=== PATIENT | male | born 1965 | race Caucasian/White ===

== ENCOUNTER → 2022-09-18 15:16 | Outpatient (CLI) | payer OTHER, SELFPAY ==
--- NOTE | ~2022-09-18 | XR_ITS ---
AP and lateral views of the left hip Clinical history: Pain Findings: No acute fracture or dislocation is seen. Osseous alignment is anatomic. There is mild to m oderate degenerative change at the left hip joint. Soft tissues are unremarkable. Impression: Mild to moderate degenerative change of the left hip joint. Reviewed, dictated and finalized at location . Impression: Mild to moderate degenerative change of the left hip joint.
== END ==
PROVIDERS: PCP Anesthesiology Pain Medicine; Visit Provider Anesthesiology Pain Medicine
DX: M16.12 Unilateral primary osteoarthritis, left hip (principal)
CPT/HCPCS: 73502

== ENCOUNTER 2023-08-09 09:18 | Emergency (ER) | payer OTHER, SELFPAY ==
--- NOTE | ~2023-08-09 | CT_ITS ---
EXAMINATION: CT soft tissue neck w con DATE: 08/09/2023 12:25 INDICATION: Left ear and left face pain. TECHNIQUE: Computed tomography (CT) of the neck was performed with 75 mL Omnipaque-350 intravenous co ntrast. Automated exposure control and iterative reconstruction technique were employed. The dose-calderon gth product was 748.70 mGy-cm. COMPARISON: None FINDINGS: There is no significant plaque in the proximal internal carotid arteries. There are no path ologically enlarged lymph nodes. The parotid glands and submandibular glands are normal. There is mil d mucosal thickening in the paranasal sinuses. There is wall thickening of left external auditory can al, consistent with otitis externa. There is moderate cervical spondylosis. IMPRESSION: 1. Left-sided otitis externa. Reviewed, dictated and finalized at location E.
--- NOTE | 2023-08-09 10:03 | ED.EAR ---
HPI - Ear Problem General Chief complaint: Ear Stated complaint: ear pain, drainage Time Seen by Provider: 08/09/23 10:02 History of Present Illness HPI Narrative: Patient is a 58-year-old male with history of chronic back pain here with right ear pain and facial swelling. Patient notes that the swelling is located beneath and anterior to his left ear and seems to be worsening over the last 3 days however he has had pressure and pain behind this ear for about 2 weeks. He does note a recurrent history of some pressure and pain with swelling to this ear which typically resolves after his ear drum pops and he has some drainage from his ear. This time his symptoms persisted and are worsening. He notes he had some mild drainage from this ear approximately 3 days ago and has not had improvement of symptoms. He denies any fever chills. Denies any difficulty with jaw movement. The pain does seem to radiate down into his neck. He denies ever seeing any specialist for this in the past. He does not follow closely with his PCP. Related Data Home Medications Medication Instructions Recorded Confirmed calcium fructoborate 216 mg tablet mg PO 05/15/20 05/04/23 (Move Free Ultra Faster Comfort) multivitamin 1 tablet PO DAILY 05/15/20 05/04/23 omega-3 fatty acids 1,000 mg 1,000 mg PO DAILY 05/15/20 05/04/23 capsule vitamin B complex 1 cap PO DAILY 05/15/20 05/04/23 ascorbic acid (vitamin C) 1,000 mg 1 g PO DAILY 07/17/21 05/04/23 tablet testosterone cypionate 200 mg/mL 100 mg IM Q7D 02/05/22 05/04/23 intramuscular oil (Depo-Testosterone) Allergies Allergy/AdvReac Type Severity Reaction Status Date / Time Penicillins Allergy Unknown RASH Verified 08/09/23 09:20 Sulfa (Sulfonamide Allergy Unknown LOSS OF Verified 08/09/23 09:20 Antibiotics) CONCIOUSNESS Review of Systems Review of Systems: All systems reviewed & are unremarkable except as noted in HPI and below PMFSH Past Medical History Medical History Carpal tunnel syndrome Hypertension Hypogonadism in male Surgical History Surgical History History of carpal tunnel surgery (~2015) both hands History of knee surgery (~1987) right knee History of placement of ear tubes as child Hx of colonoscopy age 52 Family History Family History Other Diabetes mellitus Heart disease Hypertension Uterine cancer Social History Social History Smoking status: Former smoker Smoking end date: 03/15/07 Alcohol intake: current Alcohol use details: consumes beer occasionally Substance use: never Substance use type: does not use Lack of Transportation: No Lack of Food: Never True Current Housing: I Have Housing Concerned About Future Housing: No Difficulty Paying Gas/Electric Bills: No Difficulty Paying for Meds: No Currently Unemployed: No Education: High School Diploma/GED Difficulty w/ Childcare or Family Care: No Gender identity (if verbalized by the patient): Male Exam Narrative: GENERAL: Well-appearing, well-nourished, and in no acute distress. HEAD: Normocephalic, atraumatic. EYES: PERRLA and EOMI. ENT: Nares clear. Mucous membranes moist. Patient has swelling over the angle of the mandible on the left side which extends to his cheek on the left side. Tender to touch without any overlying skin changes. He has tenderness with manipulation of the left pinna. Unable to see the TM due to swelling of the ear canal with significant tenderness on exam. No active drainage. Right pinna, canal, TM appear normal. NECK: Supple. CHEST: Clear to auscultation. No respiratory distress. HEART: Regular rate and rhythm. Normal peripheral pulses. ABDOMEN: Soft, nontender, nondist
[2023-08-09 10:37] VITALS: BP 156/84; PULSE 76; RESP 16; TEMP 36.4; O2SAT 98
[2023-08-09] MEDS: ONDANSETRON INJ 4 MG/2 ML VIAL IV PUSH (11:59)
[2023-08-09] MEDS: CIPROFLOXACIN 400 MG/D5W 200ML 200 ML 200 MG IVPB (12:00)
[2023-08-09] MEDS: MORPHINE SULFATE (*CRX) 4 MG/ML INJ IV PUSH (12:00)
[2023-08-09 12:13] LABS: Basophils Absolute Auto 0.1 K/mm3 (0.0-0.1); Basophils Percent Auto 0.6 % (0.2-1.2); Eosinophils Absolute Auto 0.3 K/mm3 (0-0.3); Hematocrit 43.9 % (42.0-52.0); Hemoglobin 14.8 g/dL (14.0-18.0); Immature Granulocyte Absolute 0.03 K/mm3 (0.00-0.031); Immature Granulocyte Percent A 0.3 % (0-0.5); Lymphocytes Absolute Auto 2.22 K/mm3 (0.9-3.2); Lymphocytes Percent Auto 19.9 % (18.3-44.2); Mean Corpuscular HGB Conc 33.7 g/dl (32-36); Mean Platelet Volume 10.3 fl (7.4-10.4); Monocytes Percent Auto 8.6 % (2.6-8.5); Neutrophils Absolute Auto 7.5 K/mm3 (1.3-6.7); Neutrophils Percent Auto 67.6 % (45.5-73.1); Platelet Count Result 260 k/mm3 (150-375); Red Blood Count 4.77 M/mm3 (4.6-6.20); Red Cell Distribution Width 12.5 % (11.5-14.5); White Blood Count 11.2 K/mm3 (4.5-10.0)
[2023-08-09 12:19] LABS: Estimated CRCL calculation 128 ml/min; Estimated Glomerular Filt Rate > 60
[2023-08-09 12:24] LABS: Alanine Aminotransferase 36 U/L (6-50); Albumin Level 4.4 g/dL (3.5-5.1); Alkaline Phosphatase 72 U/L (38-126); Anion Gap 7 mmol/L (4-12); Aspartate Amino Transferase 28 U/L (17-59); Bilirubin,Total 0.7 mg/dL (0.2-1.3); Blood Urea Nitrogen 13 mg/dL (9-20); Calcium 9.1 mg/dL (8.4-10.2); Carbon Dioxide 29 mmol/L (22-30); Chloride 102 mmol/L (98-107); Estimated CRCL calculation 145 ml/min; Estimated Glomerular Filt Rate > 60; Glucose 111 mg/dL (65-110); Potassium 3.8 mmol/L (3.4-5.0); Sodium 138 mmol/L (137-145)
[2023-08-09 12:25] LABS: CRP 2.1 mg/dL (<1.0)
== END 2023-08-09 14:00 | disposition home or self-care (01) ==
PROVIDERS: Emergency Provider Student in an Organized Health Care Education/Training Program; PCP Family Medicine
DX: H60.312 Diffuse otitis externa, left ear (principal)
CPT/HCPCS: 36415; 70491; 80053; 85025; 86140; 96365; 96375; 99284; J0744; J2270; J2405; Q9967

== ENCOUNTER 2023-11-10 09:26 | Outpatient (CLI) | payer OTHER, SELFPAY ==
--- NOTE | ~2023-11-10 | XR_ITS ---
AP and lateral views of the left hip Clinical history: Pain Findings: No acute fracture or dislocation is seen. Osseous alignment is anatomic. There is advanced degenerative change at the superior aspect of left hip joint space, joint space narrowing and reactiv e sclerosis.. Soft tissues are unremarkable. Impression: Advanced degenerative change of the left hip joint, as detailed above. Reviewed, dictated and finalized at location M. Impression: Advanced degenerative change of the left hip joint, as detailed above.
== END 2023-11-10 09:27 ==
LOC: MICIMG 09:28
PROVIDERS: PCP Orthopaedic Surgery; Visit Provider Neurological Surgery
DX: M16.12 Unilateral primary osteoarthritis, left hip (principal); M25.552 Pain in left hip
CPT/HCPCS: 73502

== ENCOUNTER 2024-03-10 13:55 | Outpatient (CLI) | payer OTHER, SELFPAY ==
--- NOTE | ~2024-03-10 | XR_ITS ---
EXAMINATION: XR lg joint inject/asp w image DATE: 03/10/2024 14:34 INDICATION: Left hip arthritis. TECHNIQUE: A time-out was performed to verify the patient's name, date of , and procedure to b e performed. The procedure including the risks, benefits, and alternatives was discussed with the pat ient. Risks discussed included bleeding and infection. The patient understood the risks and agreed to proceed. The skin overlying the left hip joint was prepped and draped in usual sterile fashion. An esthetic was administered with 1% lidocaine subcutaneously. A 22 G needle was advanced under fluoros copic guidance into the joint. Subsequently, injectate consisting of 2 mL 0.5% bupivacaine and 1 mL 80 mg/mL Depo-Medrol was instilled. The needle was removed and the entry site was cleaned and dresse d. There were no immediate complications. Fluoroscopy exposure time was 0.1 minutes. The total numbe r of images was 1. FINDINGS: Real-time fluoroscopy demonstrates the needle in the left hip joint. Patient's pain prior t o procedure:11/23. Patient's pain following the procedure: 09/22. IMPRESSION: 1. Fluoroscopy guided left hip joint injection of local anesthetic and steroid with decrease in the p atient's presenting pain. Reviewed, dictated and finalized at location A. E SPECIALIST IMPRESSION: 1. Fluoroscopy guided left hip joint injection of local anesthetic and steroid with decrease in the patient's presenting pain.
== END 2024-03-10 13:56 | disposition home or self-care (01) ==
PROVIDERS: PCP Family Medicine; Visit Provider Orthopaedic Surgery
DX: M16.12 Unilateral primary osteoarthritis, left hip (principal)
CPT/HCPCS: 20610; 77002; J1010; J2003

== ENCOUNTER 2024-04-25 14:37 | Outpatient (CLI) | payer OTHER, SELFPAY ==
--- NOTE | ~2024-04-25 | XR_ITS ---
Right Knee Technique: AP, lateral, and sunrise views were obtained. Clinical History: Pain Findings: No fracture or dislocation is seen. Osseous alignment is anatomic. There is advanced tricom partmental osteoarthritic change, with extensive osteophyte formation throughout the knee.. Soft tiss ues are unremarkable. No joint effusion is seen. Impression: Severe tricompartmental osteoarthritis. Reviewed, dictated and finalized at location . SHOP WORKER Impression: Severe tricompartmental osteoarthritis.
== END 2024-04-25 14:38 | disposition home or self-care (01) ==
LOC: MICIMG 14:38
PROVIDERS: PCP Family Medicine; Visit Provider Nurse Practitioner Family
DX: M17.11 Unilateral primary osteoarthritis, right knee (principal)
CPT/HCPCS: 73564

== ENCOUNTER 2024-07-22 11:07 | Outpatient (CLI) | payer OTHER, SELFPAY ==
--- OUTSIDE RECORDS SUMMARY | 2024-07-22 11:14 | XMS_ITS | Clinical Summary ---
Author Organization [facility] al Address [address] [place] [address] Care Team Providers Care Hand Tile Maker Name Role Phone Yazmin Drake MD Primary Care Provider [phone] Allergies Active Allergy Reactions Criticality Noted Date Comments Penicillin G Sulfa (Sulfonamide Antibiotics) Medications losartan (COZAAR) 50 mg tablet take 1 tablet by oral route every day 0 0 6 Active testosterone (ANDRODERM) 4 mg/24 hr apply 1 patch by transdermal route every day to clean, dry skin of the back, abdomen, and upper arms, or thighs in the evening 0 patch 0 6 Active Active Problems Problem Noted Date Diagnosed Date Pain in wrist 08/31/2015 Overview (06/20/2016): Wrist pain Pain of hand 06/06/2015 Overview (06/20/2016): Hand pain Former smoker 06/06/2015 Overview (06/20/2016): Ex smoker Medical History Medical History Date Comments Hx Other Medical High iron in bl ood.; Comments: ERMELINDA 06/06/2015 - Hx Other Medical Right carpal tu nnel release. 08-22-15; Comments: ERMELINDA 09/03/2015 - Hx Other Medical Left carpal gail barrie release 09-12-15.; Comments: ERMELINDA 09/24/2015 - Family History Medical History Relation Name Comments Other Other Family history of anesthetic problems, early heart attack before age 60, diabetes, hypertension, cancer and arthritis.; Relation Name Status Comments Other Social History Tobacco Use Types Packs/Day Years Used Date Smoking Tobacco: Never Assessed Sex and Gender Information Value Date Recorded Sex Assigned at Not on file Legal Sex Male 12:13 AM TRANSPORTATION CONSULTANT Gender Identity Not on file Sexual Orientation Not on file Obstetrics History Last Filed Vital Signs Vital Sign Reading Time Taken Comments Blood Pressure 160/88 05/15/2023 11:59 AM TRANSPORTATION CONSULTANT Pulse 78 05/15/2023 11:59 AM TRANSPORTATION CONSULTANT Temperature - - Respiratory Rate - - Oxygen Saturation - - Inhaled Oxygen Concentration - - Weight 149.7 kg (330 lb) 07/11/2023 9:15 AM CDT Height 172.7 cm (5' 8 ) 07/11/2023 9:15 AM CDT Body Mass Index 50.18 07/11/2023 9:15 AM CDT Plan of Treatment Health Maintenance Due Date Last Done Comments Colon Cancer Screening-Colonoscopy 1967 Depression Screening 1967 Hepatitis C Screening 1967 Prostate Cancer Screening-PSA 1967 DTaP/Tdap/Td Vaccine (1 - Tdap) 1978 Hepatitis B Screening 1985 Regular Well Visit/Exam 18-64 1985 Zoster Vaccine (1 of 2) 2017 Covid-19 Vaccine (3 2023-2 5 season) 2023 05/28/2020, 05/06/2020 Influenza Vaccine (#1) 2023 5, 08/01/2014 Pneumococcal vaccine <65 Aged Out No longer eligible based on patient's age to complete this topic Insurance [facility] CHO[facility] HMO/PPO Address: [address] [address] [place] [address] [facility] H[facility]/PPO Address: [address] [address] [place] [address] [facility] H[facility]/PPO Address: [address] [place] [address] Care Teams Hand Tile Maker Relationship Specialty Start Date End Date Yazmin Drake MD PCP - General Family Medicine 05/15/23
--- OUTSIDE RECORDS SUMMARY | 2024-07-22 11:14 | XMS_ITS | Encounter Summary ---
Author Organization [facility] Healthcare Address [address] [place] [address] Care Team Providers Care Bar Finish Operator Name Role Phone Will Verdugo MD Primary Care Provider [phone] Yazmin Drake MD Primary Care Provider [phone] Encounter Details Date Type Department Care Team (Late st Contact Info) Description 09/07/2019 Telephone [facility] [address] [place] [address] Allegra Rae RT Social History Tobacco Use Types Packs/Day Years Used Date Smoking Tobacco: Never Assessed Sex and Gender Information Value Date Recorded Sex Assigned at Not on file Legal Sex Male 12:13 AM FLOW NURSE Gender Identity Not on file Sexual Orientation Not on file documented as of this encounter Plan of Treatment Not on file documented as of this encounter Visit Diagnoses Not on filedocumented in this encounter Care Teams Bar Finish Operator Relationship Specialty Start Date End Date Will Verdugo MD [address] [place] [address] PCP - General 10/07/16 05/14/23 Yazmin Drake MD [address] [place] [id number] PCP - General Family Medicine 05/15/23 documented as of this encounter
--- OUTSIDE RECORDS SUMMARY | 2024-07-22 11:14 | XMS_ITS | Referral Summary ---
Author Organization [facility] al Address [address] [place] [address] Care Team Providers Care Manager File Name Role Phone Yazmin Drake MD Primary Care Provider [phone] Allergies Active Allergy Reactions Criticality Noted Date [...] Former smoker 06/06/2015 Overview (06/20/2016): Ex smoker Social History Tobacco Use Types Packs/Day Years Used Date Smoking Tobacco: Never Assessed Sex and Gender Information Value Date Recorded Sex Assigned at Not on file Legal Sex Male 12:13 AM REVENUE FIELD AGENT Gender Identity Not on file Sexual Orientation Not on file Last Filed Vital Signs Vital Sign Reading Time Taken Comments Blood Pressure 160/88 05/15/2023 11:59 AM REVENUE FIELD AGENT Pulse 78 05/15/2023 11:59 AM REVENUE FIELD AGENT Temperature - - Respiratory Rate - - Oxygen Saturation - - Inhaled Oxygen Concentration - - Weight 149.7 kg (330 lb) 07/11/2023 9:15 AM CDT Height 172.7 cm (5' 8 ) 07/11/2023 9:15 AM CDT Body Mass Index 50.18 07/11/2023 9:15 AM CDT Plan of Treatment Not on file Insurance [facility] HMO/PPO Address: [address] [place] [address] CHOICE PLUS [facility] HMO/PPO Address: [address] [address] [place] [address] [facility] CHOICE PLUS [facility] HMO/PPO Address: [facility] [id number] [place] [address] Care Teams Manager File Relationship Specialty Start Date End Date Yazmin Drake MD PCP - General Family Medicine 05/15/23
--- OUTSIDE RECORDS SUMMARY | 2024-07-22 11:14 | XMS_ITS | Clinical Summary ---
Author Organization [facility] Address [facility] [place] [address] Care Team Providers Care Customer Care Voice Consultant Name Role Phone Yazmin Drake MD Primary Care Provider [phone] Allergies Active Allergy Reactions Criticality Noted Date Comments Penicillins Hives 05/31/2015 Sulfa Antibiotics Rash Low 05/31/2015 Medications cyclobenzaprine (FLEXERIL) 10 MG tablet Take 1 tablet (10 mg total) by mouth 2 (two) times daily as needed for Muscle Spasms. 07/27/2023 Active losartan (COZAAR) 50 MG tablet Take 1 tablet (50 mg total) by mouth daily. Active fish oil (OMEGA-3 FATTY ACID) 1200 MG Cap capsule Take 1 tablet by mouth daily. Active Multiple Vitamin (MULTIVITAMIN ADULT) Tab Take 1 tablet by mouth daily. Active B Complex Vitamins (B COMPLEX 100 OR) Take 1 tablet by mouth daily. Active Ascorbic Acid (VITAMIN C) 500 MG Cap Take 1 tablet by mouth daily. Active Semaglutide (OZEMPIC, 0.25 OR 0.5 MG/DOSE, SC) Active oxyCODONE immediate release (ROXICODONE) 5 MG immediate release tabletIndication s:Acute Pain < 7 Day Supply Take 1 tablet (5 mg total) by mouth every 6 (six) hours as needed. Indications : Acute Pain < 7 Day Supply 28 tablet 08/25/2023 Active oxyCODONE immediate release (ROXICODONE) 5 MG immediate release tabletIndication s:Acute Pain < 7 Day Supply Take 1 tablet (5 mg total) by mouth every 6 (six) hours as needed for Pain. Indications : Acute Pain < 7 Day Supply 28 tablet 09/02/2023 Active Active Problems Problem Noted Date Diagnosed Date Lumbar stenosis with neurogenic claudication 01/2024 Social History Tobacco Use Types Packs/Day Years Used Date Smoking Tobacco: Former Cigarettes 1 17.4 2 008 - 1987 Smokeless Tobacco: Never Tobacco Cessation:Counseling Given: Not Answered Alcohol Use Standard Drinks/Week Comments Not Currently 0 (1 standard drink = 0.6 oz pur e alcohol) occasional [facility] Utilities Answer Date Recorded In the past 12 months has th e Hightail, gas, oil, or water company threatened to shut off services in your home? No 08/25/2023 Humiliation, Afraid, Rape, and Kick questionnair e Answer Date Recorded Within the last year, have y ou been afraid of your partner or ex-partner? No 08/25/2023 Within the last year, have y ou been humiliated or emotionally abused in other ways by your partner or ex-partner? No Within the last year, have y ou been kicked, hit, slapped, or otherwise physically hurt by your partner or ex-partner? No 08/25/2023 Within the last year, have y ou been raped or forced to have any kind of sexual activity by your partner or ex-partner? No 08/25/2023 Overall Financial Resource Strain (CARDIA) Answe r Date Recorded How hard is it for you to pa y for the very basics like food, housing, medical care, and heating? Not hard at all 08/25/2023 Hunger Vital Sign Answer Date Recorded Within the past 12 months, y ou worried that your food would run out before you got the money to buy more. Never true 08/25/19 24 Within the past 12 months, t he food you bought just didn't last and you didn't have money to get more. Never true 08/25/2023 PRAPARE - Transportation Answer Date Re corded In the past 12 months, has l ack of transportation kept you from medical appointments or from getting medications? No 08/14 In the past 12 months, has l ack of transportation kept you from meetings, work, or from getting things needed for daily living? No 08/25/2023 Housing Stability Vital Sign Answer Ananda e Recorded In the last 12 months, was t here a time when you were not able to pay the mortgage or rent on time? No 08/25/2023 In the past 12 months, how m any times have you moved where you were living? 1 08/25/2023 At any time in the past 12 m [facility], were you homeless or living in a retirement (including now)? No 08/25/2023 Sex and Gender Information Value Date Recorded Sex Assigned at Not on file Legal Sex Male 4:05 PM CDT Gender Identity Not on file Sexual Orientation Not on file Last Filed Vital Signs Vital Sign Reading Time Taken Comments Blood Pressure 119/64 08/26/2023 10:54 AM CDT Pulse 88 08/26/2023 10:54 AM CDT Temperature 37.2 C (99 F) 08/26/2023 10:54 AM CDT Respiratory Rate 14 08/26/2023 7:06 AM CDT Oxygen Saturation 93% 08/26/2023 10: 54 AM CDT Inhaled Oxygen Concentration - - Weight 155.4 kg (342 lb 9.5 oz) 08/25/2023 8:40 AM CDT Height 172.7 cm (5' 8 ) 08/25/2023 8:40 AM CDT Body Mass Index 52.09 08/25/2023 8:40 AM CDT Plan of Treatment Health Maintenance Due Date Last Done Comments Colorectal Cancer Screening Colonoscopy (10 Years) 1967 Annual Physical 1970 Hepatitis C 1985 DTaP, Tdap and Td Vaccines ( 1 - Tdap) 1986 Hepatitis B Vaccines (1 of 3 - 19+ 3-dose series) 1986 Pneumococcal Vaccine: 50+ Years (1 of 1 - PCV) 2017 Zoster Vaccines (1 of 2) 2017 COVID-19 Vaccine ( - 2023-2 5 season) 2023 05/28/2020, 05/06/2020 Meningococcal B Vaccine Aged Out No l onger eligible based on patient's age to complete this topic Meningococcal Vaccine Aged Out No karyn sandhya eligible based on patient's age to complete this topic RSV Immunizations Under 20 Months Aged Out No longer eligible b ased on patient's age to complete this topic Goals Goal Patient Goal Type Associated Problems Recent Progress Patient-Stated? Author Family - family caregiver with be involved in care transitions and discharge planning Lifestyle No Raya, Yecenia R, RN Medical Devices Implanted Type Area Pot Runner Device Identifier Shelf Expiration Date Model / Serial / Lot Agent Hemostatic Thrombin Sterile Kit Matrix Surgiflo 8ml - [id number] Implanted:Qty: 1 on 08/25/2023 by Graciela Brandt MD at [facility] [employer] / / Insurance [facility] Advance Directives * Full Code (Latest Code Status on File) Date Activated Date Inactivated Comments 08/25/2023 2:30 PM 08/26/2023 4:24 PM Care Teams Customer Care Voice Consultant Relationship Specialty Start Date End Date Yazmin Drake MD [address] [place] [address] PCP - General FAMILY PRACTICE 08/17/23
--- OUTSIDE RECORDS SUMMARY | 2024-07-22 11:14 | XMS_ITS | Clinical Summary ---
Author Organization [facility] Address [address] [place] [address] Phone Care Team Providers Care Automatic Thread Winder Name Role Phone Will Verdugo MD Primary Care Provider [phone] Allergies Active Allergy Reactions Criticality Noted Date Comments Penicillins Hives 05/31/2015 Sulfa Antibiotics Rash 05/31/2015 Medications Testosterone 200 MG PELLET by Intramuscular route every 10 days. Active losartan (COZAAR) 50 MG Tablet Take 50 mg by mouth daily. Active Multiple Vitamins-[place] als (MULTIVITAMIN PO) Take 1 Tab by mouth daily. Active White Owl-3 Fatty Acids (FISH OIL PO) Take 1 Tab by mouth daily. Active Ascorbic Acid (VITAMIN C PO) Take 1 Tab by mouth daily. Active B Complex Vitamins (B COMPLEX PO) Take 1 Tab by mouth daily. Active Aspirin 81 MG Tablet Take 81 mg by mouth daily. Active HYDROcodone-ac etaminophen (NORCO) 5-325 MG Tablet Take 1 Tab by mouth every 6 hours as needed for Pain. 30 Tab 0 6 Active Active Problems Problem Noted Date Diagnosed Date Secondary polycythemia 09/20/2015 Iron overload 06/15/2015 Elevated LFTs 06/06/2015 Elevated ferritin 05/31/2015 Chronic fatigue 05/31/2015 Family History Medical History Relation Name Comments Diabetes Father Hypertension Father Cancer Maternal Uncle Cancer Mother Diabetes Mother Hypertension Mother Relation Name Status Comments Father Maternal Uncle Mother Social History Tobacco Use Types Packs/Day Years Used Date Smoking Tobacco: Former Cigarettes 1 20 Smokeless Tobacco: Never Alcohol Use Standard Drinks/Week Comments Yes 0 (1 standard drink = 0.6 oz pur e alcohol) weekly Sex and Gender Information Value Date Recorded Sex Assigned at Not on file Legal Sex Male 11:31 AM CDT Gender Identity Not on file Sexual Orientation Not on file Last Filed Vital Signs Vital Sign Reading Time Taken Comments Blood Pressure 159/81 09/20/2015 2:23 PM CDT Pulse 80 09/20/2015 2:23 PM CDT Temperature 37.1 C (98.8 F) 09/20/2015 2:23 PM CDT Respiratory Rate 20 09/20/2015 2:23 PM CDT Oxygen Saturation 95% 09/12/2015 2:25 PM CDT Inhaled Oxygen Concentration - - Weight 162.8 kg (358 lb 12.8 oz) 09/20/2015 2:23 PM CDT Height 174 cm (5' 8.5 ) 09/20/2015 2:23 PM CDT Body Mass Index 53.76 09/20/2015 2:23 PM CDT Plan of Treatment Health Maintenance Due Date Last Done Comments TdaP Immunization 1967 Hepatitis B Immunization (1 of 3 - 19+ 3-dose series) 1986 Colonoscopy 01/25/2012 Colorectal Cancer Screening 01/25/2012 Cologuard 2017 Immunochemical Fecal Occult Blood 2017 Pneumococcal Immunization (5 0+ years) (1 of 1 - PCV) 2017 Zoster Immunization (1 of 2) 2017 Influenza Immunization (#1) 2023 SARS-COV-2 Immunization ( - 2023- season) 2023 Respiratory Syncytial Virus (RSV) Immunization (Adult) (1 - 1-dose 75+ series) 2042 Hepatitis C Virus (HCV) Screening Completed 05/31/2015 PSA Discussion Completed 01/22/2016, 07/08/2014 Meningococcal Immunization (ACWY) Aged Out No longer eligible b ased on patient's age to complete this topic Pneumococcal Immunization Combined Aged Out No longer eligible b ased on patient's age to complete this topic Rotavirus Immunization Aged Out No lo nger eligible based on patient's age to complete this topic Procedures Procedure Name Priority Date/Time Associated Diagnosis Comments PSA SCREEN Routine 01/22/2016 HEPATITIS C ANTIBODY Routine 05/31/2015 Iron overload from Last 3 Months or Most Recently Relevant to Health Maintenance Results * PSA SCREEN (01/22/2016) PSA SCREEN 0.5 Blood specimen (specimen) 01/22/2016 us Not On File Provider CHEMISTRY ORDERABLES Edited Result - Final * HEPATITIS C ANTIBODY (05/31/2015) Blood specimen (specimen) us Devan Rosas MD CHEMISTRY ORDERABLES Fin al Result from Last 3 Months or Most Recently Relevant to Health Maintenance Care Teams Automatic Thread Winder Relationship Specialty Start Date End Date Will Verdugo MD [address] [place] [id number] PCP - General Family Medicine 05/31/15
--- NOTE | 2024-07-22 11:23 | ECG_ITS ---
Test Date: 2024-07-22 11:30:55 Measurements Intervals [place] Rate: 64 P: 33 IA: 185 QRS: -3 QRSD: 100 T: 9 QT: 398 QTc: 413 Interpretive Statements SINUS RHYTHM No previous ECG available for comparison Electronically Signed On 07-22-2024 12:18:40 CDT by Ginette Howard M.D.
== END 2024-07-22 11:08 | disposition home or self-care (01) ==
LOC: ANHCARD 11:11
PROVIDERS: PCP Family Medicine; Visit Provider Orthopaedic Surgery
DX: I10 Essential (primary) hypertension (principal)
CPT/HCPCS: 93005

== ENCOUNTER 2024-08-04 07:52 | Outpatient (CLI) | payer OTHER, SELFPAY ==
--- OUTSIDE RECORDS SUMMARY | 2024-08-04 08:01 | XMS_ITS | Referral Summary ---
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 Gender Identity Not on file Sexual Orientation Not on file Last Filed Vital Signs Vital Sign Reading Time Taken Comments Blood Pressure 160/88 05/15/2023 11:59 AM DIE CUTTING MACHINE OPERATOR Pulse 78 05/15/2023 11:59 AM DIE CUTTING MACHINE OPERATOR Temperature - - Respiratory Rate - - Oxygen Saturation - - Inhaled Oxygen Concentration - - Weight 149.7 kg (330 lb) 07/11/2023 9:15 AM CDT Height 172.7 cm (5' 8 ) 07/11/2023 9:15 AM CDT Body Mass Index 50.18 07/11/2023 9:15 AM CDT Plan of Treatment Not on file Insurance CHOICE PLUS [facility] CHOICE PLUS Care Teams English Language Learner Tutor Relationship Specialty Start Date End Date Yazmin Drake MD PCP - General Family Medicine 05/15/23
--- OUTSIDE RECORDS SUMMARY | 2024-08-04 08:01 | XMS_ITS | Clinical Summary ---
Author Organization [facility] Address [address] [place] [address] Phone Care Team Providers Care Welder Boilermaker Name Role Phone Will Verdugo MD Primary Care Provider [phone] Allergies Active Allergy Reactions Criticality Noted Date Comments Penicillins Hives 05/31/2015 Sulfa Antibiotics Rash 05/31/2015 Medications Testosterone 200 MG PELLET by Intramuscular route every 10 days. Active losartan (COZAAR) 50 MG Tablet Take 50 mg by mouth daily. Active Multiple Vitamins-[place] als (MULTIVITAMIN PO) Take 1 Tab by mouth daily. Active [place]-3 Fatty Acids (FISH OIL PO) Take 1 [...] Recently Relevant to Health Maintenance Care Teams Welder Boilermaker Relationship Specialty Start Date End Date Will Verdugo MD [address] [place] [address] PCP - General Family Medicine 05/31/15
--- OUTSIDE RECORDS SUMMARY | 2024-08-04 08:01 | XMS_ITS | Clinical Summary ---
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 Gender Identity Not on file Sexual Orientation Not on file Obstetrics History Last Filed Vital Signs Vital Sign Reading Time Taken Comments Blood Pressure 160/88 05/15/2023 11:59 AM BRIDGE DESIGN ENGINEER Pulse 78 05/15/2023 11:59 AM BRIDGE DESIGN ENGINEER Temperature - - Respiratory Rate - - [...] Vaccine (1 of 2) 2017 Covid-19 Vaccine ( - 2023-2 5 season) 2023 05/28/2020, 05/06/2020 Influenza Vaccine (Season Ended) 2024 08/29/2014, 08/01/2014 Pneumococcal vaccine <65 Aged Out No longer eligible based on patient's age to complete this topic Insurance [facility] CHOICE PLUS [facility] CHOICE PLUS [facility] CHOICE PLUS Care Teams Dumper Operator Relationship Specialty Start Date End Date Yazmin Drake MD PCP - General Family Medicine 05/15/23
--- OUTSIDE RECORDS SUMMARY | 2024-08-04 08:01 | XMS_ITS | Encounter Summary ---
Author Organization [facility] Healthcare Address [address] [place] [address] Care Team Providers Care Biochemical Engineer Name Role Phone Will Verdugo MD Primary Care Provider [phone] Yazmin Drake MD Primary Care Provider [phone] Encounter Details Date Type Department Care Team (Late st Contact Info) Description 09/07/2019 Telephone [facility] Imaging [address] [place] [address] Allegra Rae RT Social History Tobacco Use Types Packs/Day Years Used Date Smoking Tobacco: Never Assessed Sex and Gender Information Value Date Recorded Sex Assigned at Not on file 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
[2024-08-04 10:32] LABS: INR 1.2; Partial Thromboplastin Time 29.5 Seconds (22.3-36.8); Prothrombin Time 15.3 Seconds (11.1-14.7)
[2024-08-04 10:36] LABS: Urine Cotinine NEGATIVE
[2024-08-04 11:30] LABS: MRSA (PCR) NOT DETECTED (NOT DETECTE)
== END 2024-08-04 07:53 | disposition home or self-care (01) ==
PROVIDERS: PCP Family Medicine; Visit Provider Orthopaedic Surgery
DX: Z01.812 Encounter for preprocedural laboratory examination (principal); M16.12 Unilateral primary osteoarthritis, left hip
CPT/HCPCS: 80307; 85610; 85730; 86850; 86900; 86901; 87641

== ENCOUNTER 2024-08-10 01:14 | Day surgery (SDC) | payer OTHER, SELFPAY ==
--- NOTE | 2024-08-04 07:59 | PC.NURSE ---
Report to the Outpatient Waiting Room, entrance under the green pavilion located off [facility], at time _6 AM on date __08/10/24 . Planned Procedure Time: __7:30AM .? Time changes happen often and if your time is changed the preop area will call you the afternoon before. - You and your visitor will be asked to self-screen and do not enter if you have any COVID symptoms. Please call surgeon if you need to reschedule. - A mask is optional within the hospital at this time. Patients may have clear liquids (water, carbonated beverages, clear teas, apple juice) until 3 hours prior to surgery ( 4:30 AM) with a maximum of 20 ounces. - No food from midnight until time of surgery and no smoking, or chewing tobacco (or any form of nicotine). No chewing gum, candy or mints. Take only the following medications with a SIP of water on the morning of surgery: ___OXYCODONE IF NEEDED FOR PAIN DO NOT STOP ANY OF YOUR OTHER PRESCRIPTION MEDICATIONS PRIOR TO SURGERY EXCEPT THE FOLLOWING Hold all vitamins and supplements for 3 days per anesthesiologist.LAST DOSE 08/06/24 Medications to discontinue per physician __HOLD __DICLOFENAC [address] WILDE_LAST DOSE 08/02/24 PT STATES DO NOT TAKE MOUNJARO 08/09/[address] __[address] PEDERSEN. PT STATES HOLD FISH OIL AND MOVE FREE 7 DAYS PRE OP PER DR CLINTON LAST DOSE 08/02/24 Please no make-up, nail kiswahili, hairspray, perfume, deodorant, or body powder the day of surgery.? No jewelry (including any body piercings) or valuables the day of surgery, leave them at home.? Please take a shower or bath the night before, or the morning of, surgery with an antibacterial soap.? Wear comfortable, loose fitting clothing.? Children are encouraged to wear pajamas. - Jewelry must be removed prior to entering the operating room.? Rings and piercings that are not removed may be cut off. - The hospital will not accept responsibility for valuables.? - Please leave all valuables, including medications, at home the day of surgery. If you are going home after surgery, a licensed driver examiner must drive you home.? - NO public transportation without another adult if you receive anesthesia. - We recommend that an adult stay with you for 24 hours following discharge. - We also recommend that you do not drive, make important decision, drink alcoholic beverages, or take any drugs that were not prescribed by your health care provider for at least 24 hours after your discharge time. For Pediatric surgeries, we recommend two adults accompany the child home. Follow any additional instructions given to you from your surgeon. VERBAL AND WRITTEN instructions given to __PATIENT AND ERAN and asked if any additional questions and then verbalized understanding. Patient advised to call surgeon office or pre surgery nurse liaison [phone] if any additional questions.
[2024-08-04 08:04] VITALS: BMI 38.7
[2024-08-04 08:51] VITALS: BP 116/66; PULSE 67; RESP 18; TEMP 36.6; O2SAT 100
[2024-08-10] VITALS (12 sets, daily range): BP systolic 104–133; BP diastolic 56–72; PULSE 59–70; RESP 14–20; TEMP 36–36.2; O2SAT 94–100
--- NOTE | ~2024-08-10 | XR_ITS ---
EXAMINATION: XR hip LT min 2V DATE: 08/10/2024 10:59 INDICATION: Status post left total hip arthroplasty TECHNIQUE: Anteroposterior and cross-table lateral views of the left hip were obtained. COMPARISON: None. FINDINGS: Noncemented left total hip arthroplasty which appears well seated in near-anatomic alignment. No frac ture. Soft tissues are unremarkable. IMPRESSION: 1. Left total hip arthroplasty in near-anatomic alignment, negative for postoperative purposes. Reviewed, dictated and finalized at location A. IMPRESSION: 1. Left total hip arthroplasty in near-anatomic alignment, negative for postope rative purposes.
--- OUTSIDE RECORDS SUMMARY | 2024-08-10 01:19 | XMS_ITS | Referral Summary ---
Author Organization [facility] al Address [address] [place] [address] Care Team Providers Care Quality Auditor Name Role Phone Yazmin Drake MD Primary Care Provider [phone] Allergies Active Allergy Reactions Criticality Noted Date [...] on file Legal Sex Male 12:13 AM PRE ALGEBRA TEACHER Gender Identity Not on file Sexual Orientation Not on file Last Filed Vital Signs Vital Sign Reading Time Taken Comments Blood Pressure 160/88 05/15/2023 11:59 AM PRE ALGEBRA TEACHER Pulse 78 05/15/2023 11:59 AM PRE ALGEBRA TEACHER Temperature - - Respiratory Rate - - Oxygen Saturation - - Inhaled Oxygen Concentration - - Weight 149.7 kg (330 lb) 07/11/2023 9:15 AM CDT Height 172.7 cm (5' 8) 07/11/2023 9:15 AM CDT Body Mass Index 50.18 07/11/2023 9:15 AM CDT Plan of Treatment Not on file Insurance [facility] Address: [address] [place] [address] CHOICE PLUS [facility]PP[facility] Address: [address] [address] [place] [address] [facility] CHOICE PLUS [facility] Address: [facility] [id number] [place] [address] Care Teams Quality Auditor Relationship Specialty Start Date End Date Yazmin Drake MD PCP - General Family Medicine 05/15/23
--- OUTSIDE RECORDS SUMMARY | 2024-08-10 01:19 | XMS_ITS | Encounter Summary ---
Author Organization [facility] Healthcare Address [address] [place] [address] Care Team Providers Care Fire Official Name Role Phone Will Verdugo MD Primary Care Provider [phone] Yazmin Drake MD Primary Care Provider [phone] Encounter Details Date Type Department Care Team (Late st Contact Info) Description 09/07/2019 Telephone [facility] Imaging [address] [place] [address] Allegra Rae RT Social History Tobacco Use Types Packs/Day Years Used Date Smoking Tobacco: Never Assessed Sex and Gender Information Value Date Recorded Sex Assigned at Not on file 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
--- OUTSIDE RECORDS SUMMARY | 2024-08-10 01:19 | XMS_ITS | Clinical Summary ---
Author Organization [facility] Address [address] [place] [address] Phone Care Team Providers Care Welt Sewer Name Role Phone Will Verdugo MD Primary Care Provider [phone] Allergies Active Allergy Reactions Criticality Noted Date Comments Penicillins Hives 05/31/2015 Sulfa Antibiotics Rash 05/31/2015 Medications Testosterone 200 MG PELLET by Intramuscular route every 10 days. Active losartan (COZAAR) 50 MG Tablet Take 50 mg by mouth daily. Active Multiple Vitamins-[place] als (MULTIVITAMIN PO) Take 1 Tab by mouth daily. Active [place]-3 Fatty Acids (FISH OIL PO) Take 1 [...] 2:23 PM CDT Height 174 cm (5' 8.5) 09/20/2015 2:23 PM CDT Body Mass Index [...] Recently Relevant to Health Maintenance Care Teams Welt Sewer Relationship Specialty Start Date End Date Will Verdugo MD [address] [place] [id number] PCP - General Family Medicine 05/31/15
--- OUTSIDE RECORDS SUMMARY | 2024-08-10 01:19 | XMS_ITS | Clinical Summary ---
Author Organization [facility] Address [address] [place] [address] Care Team Providers Care Attacher Name Role Phone Yazmin Drake MD Primary Care Provider [phone] Allergies Active Allergy Reactions Criticality Noted Date [...] on file Legal Sex Male 12:13 AM AUDIO PRODUCTION ENGINEER Gender Identity Not on file Sexual Orientation Not on file Obstetrics History Last Filed Vital Signs Vital Sign Reading Time Taken Comments Blood Pressure 160/88 05/15/2023 11:59 AM AUDIO PRODUCTION ENGINEER Pulse 78 05/15/2023 11:59 AM AUDIO PRODUCTION ENGINEER Temperature - - Respiratory Rate - [...] patient's age to complete this topic Insurance [facility] CHOICE PLUS [facility] Address: [address] [address] [place] [address] [facility] CHOICE PLUS [facility] Address: [address] [address] [place] [address] [facility] CHOICE PLUS [facility] Address: [address] [place] [address] Care Teams Attacher Relationship Specialty Start Date End Date Yazmin Drake MD PCP - General Family Medicine 05/15/23
[2024-08-10 06:36] LABS: Glucose Point of Care 92 mg/dl (65-105)
[2024-08-10] MEDS: TRANEXAMIC ACID 1,000MG/ISO100 1,000 MG/100 ML BAG 200 MG IVPB (06:40)
[2024-08-10 06:48] LABS: INR 1.1; Prothrombin Time 14.6 Seconds (11.1-14.7)
[2024-08-10] MEDS: ACETAMINOPHEN 500 MG TABLET 1000 MG PO (06:50)
--- NOTE | 2024-08-10 07:14 | WPDANESEPPF ---
Anes - Initial Pre Proc Eval Procedure: Operation Date: 08/10/24 07:30 Proposed Procedures p Left Total Hip Arthroplasty - Roc Bejarano MD Date/Time: 08/10/24 07:14 Surgeon: Roc Bejarano MD Pre Op Diagnosis: left hip djd Patient Data Age: 59 Gender: M Height: 1.75 m Weight: 123.4 kg Last Vital Signs Temp 97.2 F L 08/10/24 06:05 Pulse 65 08/10/24 06:05 Resp 18 08/10/24 06:05 BP 118/68 08/10/24 06:05 Pulse Ox 98 08/10/24 06:05 O2 Del Method Room Air 08/10/24 06:05 Allergies Allergy/AdvReac Type Severity Reaction Status Date / Time Penicillins Allergy Unknown RASH Verified 08/04/24 08:05 Sulfa (Sulfonamide Allergy Unknown LOSS OF Verified 08/04/24 08:05 Antibiotics) CONCIOUSNESS Home Medications ?Medication ?Instructions ?Recorded ?Confirmed ?Type calcium fructoborate 216 mg tablet 216 mg PO DAILY 05/15/20 08/10/24 History (Move Free Ultra Faster Comfort) multivitamin 1 tablet PO DAILY 05/15/20 08/10/24 History omega-3 fatty acids 1,000 mg 1,000 mg PO DAILY 05/15/20 08/10/24 History capsule vitamin B complex 1 cap PO DAILY 05/15/20 08/10/24 History ascorbic acid (vitamin C) 1,000 mg 1 g PO DAILY 07/17/21 08/10/24 History tablet testosterone cypionate 200 mg/mL 100 mg IM Q7D 02/05/22 08/04/24 History intramuscular oil (Depo-Testosterone) CPAP 4-20cm H2O #1 ea 12/03/23 08/04/24 Rx hydrochlorothiazide 25 mg tablet See Rx Instructions .Route 01/25/24 08/10/24 Rx .COMPLEX #90 tabs losartan 50 mg tablet See Rx Instructions .Route 01/25/24 08/10/24 Rx .COMPLEX #90 tabs metformin 500 mg tablet,extended 1,000 mg (2 x 500 mg) PO DAILY 90 03/18/24 08/10/24 Rx release 24 hr days #180 tabs naloxone 4 mg/actuation nasal 4 mg intranasal Q2-3M PRN opioid 05/09/24 08/04/24 Rx spray (Narcan) overdose #2 ea diclofenac sodium 50 mg 50 mg PO BID #60 tabs 06/28/24 08/10/24 Rx tablet,delayed release oxycodone 5 mg tablet 5 mg PO BID PRN pain #16 tabs 06/28/24 08/04/24 Rx tirzepatide 5 mg/0.5 mL 5 mg (0.5 mL) subcut WEEKLY #2 mL 07/05/24 08/10/24 Rx subcutaneous pen injector (Mounjaro) rosuvastatin 5 mg tablet 5 mg PO DAILY #30 tabs 07/26/24 08/10/24 Rx glucosam 750 mg-chondroi 100 1 tablet PO DAILY 08/04/24 08/04/24 History mg-hyalur 1.65 mg-CF borate 108 mg tablet ([employer]) celecoxib 200 mg capsule (Celebrex) 200 mg PO BID #60 caps 08/05/24 08/10/24 Rx Laboratory Tests 08/10/24 08/10/24 06:22 06:33 PT 14.6 Seconds (11.1-14.7) INR 1.1 POC Capillary Glucose 92 mg/dl (65-105) Patient hx anesthesia problems: none Family hx anesthesia problems: none Results Review: All pre-operative results and documents have been reviewed as part of the pre-operative evaluation. [facility] Past Medical History Medical History ) Right knee pain Hip pain Hypertension Hypogonadism in male Carpal tunnel syndrome Surgical History Surgical History ) History of spinal surgery Hx of colonoscopy age 52 History of placement of ear tubes as child History of knee surgery (~1987) right knee History of carpal tunnel surgery (~2015) both hands Family History Family History ) Unknown Hypertension Heart disease Diabetes mellitus High cholesterol Uterine cancer Social History Social History ) Smoking packs per day: 1 Smoking cigarettes per day: 20.0 Years smoked: 20 Smoking pack-years: 20.00 Smoking status: Former smoker Tobacco type: cigarettes Smoking end date: 03/16/07 Additional smoking assessment comments: DENIES ANY FORM OF TOBACCO USE Alcohol intake: current Drinks per week: 1 Alcohol use details: consumes beer occasionally Substance use: never Substance use type: does not use Lack of Transportation: No Lack of Food: Never True Current Housing: I Have Housing Concerned About Future Housing: No Difficulty Paying Gas/Electric Bills: No Difficulty Paying for Meds: No Currently Unemployed: No Education: High School Diploma/GED Difficulty w/ Childcare or Family Care: No Living arrangements: with family Occupation/Education: occupation 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 Informed Consent: The patient's anesthetic plan and its attendant risks and benefits were discussed with the patient/family/POA. Questions were solicited and answers provided to the satisfaction of the patient/family/POA.
--- NOTE | 2024-08-10 07:14 | WPDHPUPDATE1 ---
History and Physical Update Update Date/Time: 08/10/24 07:14 History and Physical has been reviewed, including an updated exam of the patient. There are NO changes in the patient's condition. Risks, benefits, and alternatives have been discussed and questions answered. Patient agrees to proceed with procedure.
[2024-08-10] MEDS: ceFAZolin 3 GM/D5W 100 ML 100 ML IVPB (07:27)
[2024-08-10] MEDS: SODIUM CHLORIDE 0.9% IV 37.7 ML, MORPHINE SULFATE INJ (*CRX) 2 MG, ROPivacaine HCL 1% 2... INFILTRATE (08:22)
[2024-08-10] MEDS: TRANEXAMIC ACID 1,000 MG/10 ML AMPUL 1000 MG IV PUSH (09:41)
--- NOTE | 2024-08-10 10:27 | W.PM.PROC2 ---
Procedure Note - Detailed Date of Procedure 08/10/24 Pre-op Diagnosis left hip djd Post-op Diagnosis Same Procedure Performed L [facility] Surgeon Roc Bejarano MD Anesthesia General Description of Procedure THE PATIENT WAS TAKEN TO THE OPERATING ROOM IN STABLE CONDITION AND WAS PLACED IN THE LATERAL DECUBITUS AND THE LEFT LOWER EXTREMITY WAS PREPPED AND DRAPED IN THE STERILE FASHION. INCISION WAS MADE IN THE POSTERIOR LATERAL SIDE OF THE HIP, DOWN TO THE FASCIA LAYER. THE FASCIA WAS INCISED. THE HIP WAS EXPOSED. THE SHORT EXTERNAL ROTATORS WERE EXPOSED. THE SCIATIC NERVE WAS IDENTIFIED. IT WAS VERY SUPERFICIAL. INCISION WAS MADE THROUGH THE SHORT EXTERNAL ROTATORS AND THE CAPSULE OF THE HIP JOINT. THE HIP WAS DISLOCATED. AN OSTEOTOMY WAS MADE TO THE FEMORAL NECK ABOUT 1 CM PROXIMAL TO THE LESSER TROCHANTER. THE ACETABULUM WAS EXPOSED. THERE WAS SEVERE DJD SEEN. BEGINNING WITH A 48 REAMER THE ACETABULUM WAS REAMED TO 53 MM. A 53 MM TRIAL WAS PLACED IN 35 DEG OF ABDUCTION AND ANTEVERSION WAS IN ALIGNMENT WITH THE TRANS ACETABULAR LIGAMENT. THE FIT WAS EXCELLENT. THE TRIAL WAS REMOVED. A 54 MM BIOMET G7 COMPONENT WAS THEN TAPPED IN TO PLACE IN 35 DEG OF ABDUCTION AND ANTEVERSION IN ALIGNMENT WITH THE TRANSVERSE ACETABULAR LIGAMENT. THE FIT WAS EXCELLENT. THE ACETABULAR LINER WAS PLACED AND CHECKED FOR STABILITY. NEXT THE FEMUR WAS PREPARED WITH INITIAL CANAL FINDER THEN SEQUENTIAL BROACHING WITH A TAPERLOC HIP SYSTEM, UNTIL AN 11 BROACH FIT WELL IN 15 OF ANTEVERSION. A +3 STANDARD OFFSET NECK WITH 36 MM HEAD TRIAL WAS PLACED. THE SHUCK TEST WAS EXCELLENT AND THE STABILITY IN FLEXION AND ROTATION WAS EXCELLENT. LEG LENGTHS WERE GROSSLY EQUAL. TRIALS WERE REMOVED. A BIOMET TAPERLOC 11 STEM WAS PLACED WITH A STANDARD OFFSET NECK THE FIT WAS EXCELLENT IN 15 DEG OF ANTEVERSION. A +3 CERAMIC 36 MM FEMORAL CERAMIC HEAD WAS PLACED. THE HIP WAS TRIALED AND THE STABILITY WAS EXCELLENT WERE THE LEG LENGTHS AND THE SHUCK TEST. THE WOUND WAS IRRIGATED WITH STERILE BETADINE AND WATER FOR 3 MIN. THEN WASHED AGAIN. THE CAPSULE AND THE EXTERNAL ROTATORS WERE APPROXIMATED WITH NUMBER 1 VICRYL. THE FASCIA WITH No 1 QUIL AND THE SUB CUTANEOUS LAYER WITH 2-0 ABSORBABLE SUTURE WITH A RUNNING 3-0 SUBCUTICULAR LAYER WELL. DERMABOND WAS PLACED AND STERILE DRESSING WAS APPLIED. PATIENT WAS PLACED BACK ON TO THE SUPINE POSITION AND WAS EXTUBATED Estimated Blood Loss 200 Complications No immediate complications Condition Stable Disposition PACU
[2024-08-10] MEDS: LACTATED RINGERS 1,000 ML 30 ML IV CONT ×2 (10:37)
[2024-08-10 10:49] LABS: Glucose Point of Care 153 mg/dl (65-105)
[2024-08-10] MEDS: fentaNYL CITRATE INJ (*CRX) 100 MCG/2 ML VIAL 25 MCG IV PUSH ×6 (11:07→11:43)
--- NOTE | 2024-08-10 12:16 | ADMGEN ---
This patient, Ned Flores, was admitted to [facility] Surg Room 325-01. Patient/family oriented to hospital policies and general routines including ID bracelet, bed and alarms, visiting hours, pain management, procedures, bathroom and other care routines, personal items, smoking policy, room service/diet, and visiting hours. Information on how to activate the Rapid Response Team has been discussed. Patient/Family are encouraged to report perceived risks to care and to ask questions if they do not understand what they are told or what they should do.
[2024-08-10] MEDS: polyethylene glycoL 3350 17 GM POWD.PACK PO (12:38)
[2024-08-10] MEDS: KETOROLAC 15 MG/ML VIAL (*BKC) IV PUSH ×2 (12:38→17:34)
[2024-08-10] MEDS: hydroCHLOROthiazide 25 MG TABLET PO (12:39)
[2024-08-10] MEDS: SENNA/DOCUSATE SODIUM TABLET 2 TAB PO ×2 (12:39→17:34)
[2024-08-10] MEDS: FAMOTIDINE 20 MG TABLET PO ×2 (12:39→20:36)
[2024-08-10] MEDS: ROSUVASTATIN 5 MG TABLET PO (12:39)
[2024-08-10] MEDS: ASPIRIN 325 MG ENTERIC TABLET PO ×2 (12:39→20:36)
[2024-08-10] MEDS: LOSARTAN POTASSIUM 50 MG TABLET BY MOUTH (12:40)
[2024-08-10] MEDS: metFORMIN HCL XR 500 MG TAB.SR.24H 1000 MG PO (12:40)
[2024-08-10] MEDS: SODIUM CHLORIDE 0.9% IV 1,000 ML 125 ML IV CONT (12:46)
[2024-08-10] MEDS: ONDANSETRON INJ 4 MG/2 ML VIAL IV PUSH (13:26)
[2024-08-10] MEDS: ceFAZolin 2 GM/D5W 50 ML 2 GM/50 ML BAG IVPB (15:14)
--- NOTE | 2024-08-10 18:26 | PCRCNOTE ---
Incentive spirometer given to RN for instruct.
[2024-08-10 20:07] LABS: Glucose Point of Care 154 mg/dl (65-105)
[2024-08-10] MEDS: diazePAM (*CRX) 5 MG TABLET PO (20:46)
[2024-08-11] MEDS: KETOROLAC 15 MG/ML VIAL (*BKC) IV PUSH ×3 (00:03→12:38)
[2024-08-11] MEDS: ceFAZolin 2 GM/D5W 50 ML 2 GM/50 ML BAG IVPB ×2 (00:04→09:18)
[2024-08-11 00:10] VITALS: BP 106/56; PULSE 69; RESP 16; TEMP 36.6; O2SAT 97
[2024-08-11] MEDS: oxyCODONE/ACETAMINOPHEN (*CRX) 10-325 MG TABLET 1 TAB PO ×2 (04:32→12:44)
[2024-08-11 04:50] VITALS: BP 108/62; PULSE 66; RESP 16; TEMP 36.5; O2SAT 99
[2024-08-11 07:29] LABS: Basophils Absolute Auto 0.1 K/mm3 (0.0-0.1); Basophils Percent Auto 0.5 % (0.2-1.2); Eosinophils Absolute Auto 0.1 K/mm3 (0-0.3); Eosinophils Percent Auto 0.6 % (0-4.4); Hematocrit 32.2 % (42.0-52.0); Hemoglobin 10.8 g/dL (14.0-18.0); Immature Granulocyte Absolute 0.07 K/mm3 (0.00-0.031); Immature Granulocyte Percent A 0.5 % (0-0.5); Lymphocytes Absolute Auto 2.63 K/mm3 (0.9-3.2); Lymphocytes Percent Auto 16.9 % (18.3-44.2); Mean Corpuscular HGB Conc 33.5 g/dl (32-36); Mean Corpuscular Hemoglobin 31.1 pg (26-34); Mean Corpuscular Volume 92.8 fl (80-100); Mean Platelet Volume 10.8 fl (7.4-10.4); Monocytes Absolute Auto 1.4 K/mm3 (0.1-0.6); Monocytes Percent Auto 9.1 % (2.6-8.5); Neutrophils Absolute Auto 11.3 K/mm3 (1.3-6.7); Neutrophils Percent Auto 72.4 % (45.5-73.1); Platelet Count Result 246 k/mm3 (150-375); Red Blood Count 3.47 M/mm3 (4.6-6.20); Red Cell Distribution Width 13.8 % (11.5-14.5); White Blood Count 15.5 K/mm3 (4.5-10.0)
[2024-08-11 07:31] LABS: Anion Gap 5 mmol/L (4-12); Blood Urea Nitrogen 12 mg/dL (9-20); Calcium 8.8 mg/dL (8.4-10.2); Carbon Dioxide 28 mmol/L (22-30); Chloride 105 mmol/L (98-107); Estimated CRCL calculation 127 ml/min; Estimated Glomerular Filt Rate > 60; Glucose 97 mg/dL (65-110); Potassium 3.5 mmol/L (3.4-5.0); Sodium 138 mmol/L (137-145)
[2024-08-11] MEDS: FAMOTIDINE 20 MG TABLET PO (09:21)
[2024-08-11] MEDS: polyethylene glycoL 3350 17 GM POWD.PACK PO (09:21)
[2024-08-11] MEDS: SENNA/DOCUSATE SODIUM TABLET 2 TAB PO (09:21)
[2024-08-11] MEDS: hydroCHLOROthiazide 25 MG TABLET PO (09:22)
[2024-08-11] MEDS: ASPIRIN 325 MG ENTERIC TABLET PO (09:22)
[2024-08-11] MEDS: LOSARTAN POTASSIUM 50 MG TABLET BY MOUTH (09:22)
[2024-08-11] MEDS: metFORMIN HCL XR 500 MG TAB.SR.24H 1000 MG PO (09:22)
[2024-08-11] MEDS: ROSUVASTATIN 5 MG TABLET PO (09:24)
[2024-08-11 09:46] VITALS: BP 108/61; PULSE 69; RESP 17; TEMP 35.8; O2SAT 98
--- NOTE | 2024-08-11 13:00 | PM.PNORT ---
Progress Note: A&P Assessment and Plan (1) S/P total hip arthroplasty: Qualifiers: Laterality: left Qualified Code(s): Z96.642 - Presence of left artificial hip joint Code(s): Z96.649 - Presence of unspecified artificial hip joint Status: Acute Assessment and Plan: POD #1 : Left TRISTA Continue PT/OT. WBAT. Walker. HIGH FALL RISK. Continue pain control. Ice Hip. Protect skin. DVT prophylaxis with Aspirin. SCDs. Incentive Spirometry Use reviewed. Monitor Dressing. Change prior to discharge. Bowel Regimen. Dispo: Home with Home Health pending progress with PT/OT Plan Reviewed history, exam, radiographs and current labs with attending MD and covering surgeon, Dr. Bejarano, who agrees with current plan as indicated above. No further recommendations from Dr. Bejarano at this time. Subjective Subjective Date/Time Seen: 08/11/24 13:00 Post Op day: 1 Interval history: POD#1: Left TRISTA Review of Systems Constitutional: Constitutional: Denies chills, Denies fatigue, Denies fever(s), Denies night sweats and Denies weakness Cardiovascular: Cardiovascular: Denies chest pain, Denies lightheadedness, Denies palpitations and Denies dyspnea Respiratory: Respiratory: Denies cough, Denies dyspnea and Denies wheezing Gastrointestinal: Gastrointestinal: Denies abdominal pain, Denies diarrhea, Denies nausea and Denies vomiting Musculoskeletal: Musculoskeletal: Reports arthralgias (left hip ), Reports joint swelling (left hip ) and Denies numbness Neurologic: Denies numbness and Denies weakness Endocrine: Endocrine: Denies fatigue and Denies palpitations Allergic/Immunologic: Allergic/Immunologic: Denies wheezing Exam Const: General: comfortable and no acute distress Orientation/consciousness: patient oriented x3 Limitations: no limitations Resp: Effort & Inspection: normal respiratory effort Cardio: Rate: regular rate Rhythm: regular rhythm GI: Inspection: non-distended Skin: General skin exam: normal color and wounds noted (incision left hip C/D/I ) Wounds: wounds noted (incision left hip C/D/I ) Neuro: General: patient oriented x3 Extrem: Left lower extremity: hip/thigh Details: tenderness Location: of the hip Location: laterally and anteriorly, swelling (thigh soft ) Location: of the hip (lateral. ), abnormal ROM (limitations with internal/external rotation and flexion/extension due to recent surgical intervention ) and other (incision lateral hip c/d/i. ), knee Details: normal to inspection and normal ROM; no tenderness and no swelling, lower leg (Negative Paolo's Sign ) Details: no edema, ankle (+ankle dorsiflexion/plantarflexion ) Details: normal to inspection, no edema and normal ROM; no tenderness, no swelling and no warmth and foot Details: normal capillary refill, toes with normal ROM, vascular exam Details: dorsalis pedis pulse present and motor-sensory exam light-touch normal in all toes; no tenderness, no ecchymosis and no crepitus Psych: Mental Status: mental status grossly normal Affect: normal affect Objective Data Vital Signs Vital Signs: Vital Signs - 24 hr 08/10/24 19:45 08/10/24 20:00 08/11/24 00:10 Temperature 36.1 C L 36.6 C Pulse Rate 70 70 69 Respiratory Rate 16 16 16 Blood Pressure 104/56 L 106/56 L Pulse Oximetry 99 99 97 Oxygen Delivery Room Air 08/11/24 04:50 08/11/24 08:00 08/11/24 09:46 Temperature 36.5 C 35.8 C L Pulse Rate 66 69 Respiratory Rate 16 17 Blood Pressure 108/62 108/61 Pulse Oximetry 99 98 Oxygen Delivery Room Air Intake/Output Intake/Output: Intake & Output 08/08/24 08/09/24 08/10/24 08/11/24 23:59 23:59 23:59 23:59 Intake Total 2409.2 1560 Balance 2409.2 1560 Meds/Results Medications: Active Medications Generic Name Dose Route Start Last Admin Trade Name Freq PRN Reason Stop Dose Admin Acetaminophen 500 mg 08/10/24 12:01 Acetaminophen 500 Mg Tablet PO Q6H PRN Pain Rated 1-3 Aspirin 325 mg 08/10/24 12:01 08/11/24 09:22 Aspirin 325 Mg Enteric Tablet PO 325 mg Q12HR BLAIRE Administration Diazepam 5 mg 08/10/24 12:01 08/10/24 20:46 Diazepam (*Crx) 5 Mg Tablet PO 5 mg Q6H PRN Administration Anxiety/Muscle Spasm Diphenhydramine HCl 25 mg 08/10/24 12:01 Diphenhydramine Hcl Inj 50 Mg/Ml Vial IV PUSH Q6H PRN Itching Famotidine 20 mg 08/10/24 12:01 08/11/24 09:21 Famotidine 20 Mg Tablet PO 20 mg Q12HR BLAIRE Administration Fentanyl Citrate 25 mcg 08/10/24 11:05 08/10/24 11:43 Fentanyl Citrate Inj (*Crx) 100 Mcg/2 Ml Vial IV PUSH 25 mcg Q2M PRN Administration Pain Hydrochlorothiazide 25 mg 08/10/24 12:01 08/11/24 09:22 Hydrochlorothiazide 25 Mg Tablet PO 25 mg DAILY BLAIRE Administration Hydromorphone HCl 1 mg 08/10/24 12:07 Hydromorphone Hcl Inj (*Crx) 2 Mg/Ml Vial IV PUSH Q2H PRN Breakthrough Pain Rated 7-10 or NPO Hydromorphone HCl 0.5 mg 08/10/24 12:07 Hydromorphone Hcl Inj (*Crx) 2 Mg/Ml Vial IV PUSH Q2H PRN Breakthrough Pain Rated 4-6 or NPO Lactated Ringer's 1,000 mls @ 30 mls/hr 08/10/24 11:05 08/10/24 10:37 Lr - Lactated Ringers Iv IV CONT 30 mls/hr .Q24H BLAIRE Administration Lactated Ringer's 1,000 mls @ 30 mls/hr 08/10/24 11:05 08/10/24 11:54 Lr - Lactated Ringers Iv IV CONT Infused .Q24H BLAIRE Infusion Sodium Chloride 1,000 mls @ 125 mls/hr 08/10/24 12:01 08/11/24 04:34 Normal Saline Iv IV CONT Not Given .Q8H BLAIRE Ibuprofen 800 mg in 200 mls @ 400 mls/hr 08/10/24 12:01 Caldolor 800 Mg/200 Ml IVPB Q6H PRN Breakthrough Pain Rated 1-3 or NPO Losartan Potassium 50 mg 08/10/24 12:01 08/11/24 09:22 Losartan Potassium 50 Mg Tablet BY MOUTH 50 mg DAILY BLAIRE Administration Metformin HCl 1,000 mg 08/10/24 12:01 08/11/24 09:22 Metformin Hcl Xr 500 Mg Tab.Sr.24h PO 1,000 mg DAILY BLAIRE Administration Naloxone HCl 0.1 mg 08/10/24 12:01 Naloxone Hcl 0.4 Mg/Ml Vial IV PUSH Q2M PRN Opiate Reversal Ondansetron HCl 4 mg 08/10/24 11:05 Ondansetron Inj 4 Mg/2 Ml Vial IV PUSH ONCE PRN Nausea Ondansetron HCl 4 mg 08/10/24 12:01 08/10/24 13:26 Ondansetron Inj 4 Mg/2 Ml Vial IV PUSH 4 mg Q4H PRN Administration Nausea And Vomiting Oxycodone/Acetaminophen 1 tablet 08/10/24 12:01 Oxycodone/Acetaminophen (*Crx) 5-325 Mg Tablet PO Q4H PRN Pain Rated 4-6 Oxycodone/Acetaminophen 1 tab 08/10/24 12:01 08/11/24 12:44 Oxycodone/Acetaminophen (*Crx) 10-325 Mg Tablet PO 1 tab Q6H PRN Administration Pain Rated 7-10 Polyethylene Glycol 17 gm 08/10/24 12:01 08/11/24 09:21 Polyethylene Glycol 3350 17 Gm Powd.Pack PO 17 gm QAM BLAIRE Administration Rosuvastatin Calcium 5 mg 08/10/24 12:01 08/11/24 09:24 Rosuvastatin 5 Mg Tablet PO 5 mg DAILY BLAIRE Administration Senna/Docusate Sodium 2 tab 08/10/24 12:01 08/11/24 09:21 Senna/Docusate Sodium Tablet PO 2 tab BID BLAIRE Administration Radiology Results: ITS Impressions Hip X-Ray 08/10/24 11:09 IMPRESSION: 1. Left total hip arthroplasty in near-anatomic alignment, negative for postoperative purposes. Labs Labs: Laboratory Results - last 24 hr 08/10/24 08/11/24 19:49 06:55 WBC 15.5 H RBC 3.47 L Hgb 10.8 L D Hct 32.2 L MCV 92.8 MCH 31.1 MCHC 33.5 RDW 13.8 Plt Count 246 MPV 10.8 H Immature Gran % (Auto) 0.5 Neut % (Auto) 72.4 Lymph % (Auto) 16.9 L [place] % (Auto) 9.1 H Eos % (Auto) 0.6 Baso % (Auto) 0.5 Lymph # (Auto) 2.63 [place] # (Auto) 1.4 H Eos # (Auto) 0.1 Baso # (Auto) 0.1 Abs Immat Gran (auto) 0.07 H Absolute Neuts (auto) 11.3 H Absolute Nucleated RBC 0.000 Nucleated RBC % 0.0 Sodium 138 Potassium 3.5 Chloride 105 Carbon Dioxide 28 Anion Gap 5 BUN 12 Creatinine 0.72 Estim Creat Clear Calc 127 Estimated GFR > 60 Glucose 97 POC Capillary Glucose 154 H Calcium 8.8
== END 2024-08-11 14:05 | disposition home health service (06) ==
LOC: ANHSURGERY 05:57 → ANH3MEDSUR 12:03
PROVIDERS: Anesthesiology; PCP Family Medicine; Visit Provider Orthopaedic Surgery
PROC: (CPT 27130; principal; 2024-08-10 07:30)
DX: M16.12 Unilateral primary osteoarthritis, left hip (principal); I10 Essential (primary) hypertension; E29.1 Testicular hypofunction; E66.01 Morbid (severe) obesity due to excess calories; Z68.41 Body mass index [BMI] 40.0-44.9, adult; Z79.84 Long term (current) use of oral hypoglycemic drugs; Z79.891 Long term (current) use of opiate analgesic; Z79.1 Long term (current) use of non-steroidal anti-inflammatories (NSAID); Z79.85 Long-term (current) use of injectable non-insulin antidiabetic drugs; Z99.89 Dependence on other enabling machines and devices; Z98.890 Other specified postprocedural states; Z98.1 Arthrodesis status; Z87.891 Personal history of nicotine dependence; Z80.49 Family history of malignant neoplasm of other genital organs; Z82.49 Family history of ischemic heart disease and other diseases of the circulatory system
CPT/HCPCS: 27447; 36415; 73502; 80048; 82948; 85025; 85610; 97110; 97116; 97161; 97165; 97530; 97535; A9270; C1776; J0171; J0690; J1100; J1171; J1596; J1885; J2250; J2270; J2405; J2704; J2795; J3010; J7030; J7120

== ENCOUNTER 2024-11-10 11:45 | Outpatient (CLI) | payer OTHER, SELFPAY ==
--- OUTSIDE RECORDS SUMMARY | 2024-11-10 11:52 | XMS_ITS | Clinical Summary ---
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 Gender Identity Not on file Sexual Orientation Not on file Obstetrics History Last Filed Vital Signs Vital Sign Reading Time Taken Comments Blood Pressure 160/88 05/15/2023 11:59 AM ELECTRIC OPERATOR Pulse 78 05/15/2023 11:59 AM ELECTRIC OPERATOR Temperature - - Respiratory Rate - [...] Vaccine (1 of 2) 2017 Covid-19 Vaccine (2023-2 5 season) 2023 05/28/2020, 05/06/2020 Influenza Vaccine (#1) 2024 5, 08/01/2014 Pneumococcal vaccine <65 Aged Out No longer eligible based on patient's age to complete this topic Insurance [employer] Care Teams Unit Educator Relationship Specialty Start Date End Date Yazmin Drake MD PCP - General Family Medicine 05/15/23
--- OUTSIDE RECORDS SUMMARY | 2024-11-10 11:52 | XMS_ITS | Encounter Summary ---
Author Organization [facility] Healthcare Address [address] [place] [address] Care Team Providers Care Heat Treat Worker Name Role Phone Will Verdugo MD Primary Care Provider [phone] Yazmin Drake MD Primary Care Provider [phone] Encounter Details Date Type Department Care Team (Late st Contact Info) Description 09/07/2019 Telephone [facility] [address] [place] [address] Allegra Rae RT Social History Tobacco Use Types Packs/Day Years Used Date Smoking Tobacco: Never Assessed Sex and Gender Information Value Date Recorded Sex Assigned at Not on file 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
--- OUTSIDE RECORDS SUMMARY | 2024-11-10 11:52 | XMS_ITS | Clinical Summary ---
Author Organization [facility] Address [address] [place] [address] Phone Care Team Providers Care Audio Visual Specialist Name Role Phone Will Verdugo MD Primary Care Provider [phone] Allergies Active Allergy Reactions Criticality Noted Date Comments Penicillins Hives 05/31/2015 Sulfa Antibiotics Rash 05/31/2015 Medications Testosterone 200 MG PELLET by Intramuscular route every 10 days. Active losartan (COZAAR) 50 MG Tablet Take 50 mg by mouth daily. Active Multiple Vitamins-Holt als (MULTIVITAMIN PO) Take 1 Tab by mouth daily. Active [place]-3 Fatty Acids (FISH OIL PO) Take 1 [...] of 3 - 19+ 3-dose series) 1986 Cologuard 01/25/2012 Colonoscopy 01/25/2012 Colorectal Cancer Screening 01/25/2012 Immunochemical Fecal Occult Blood 01/25/2012 Pneumococcal Immunization (5 0+ years) (1 of 1 - PCV) 2017 Zoster Immunization (1 of 2) 2017 SARS-COV-2 Immunization (1 - 2023-25 season) 2023 Influenza Immunization (#1) 2024 Respiratory Syncytial Virus (RSV) Immunization (Adult) (1 - 1-dose 75+ series) 2042 Hepatitis C Virus (HCV) Screening Completed 05/31/2015 PSA Discussion Discontinued 01/22/2016, 07/08/2014 Human Papillomavirus (HPV) Immunization Aged Out No longer eligible based on patient's age to complete this topic Meningococcal Immunization (ACWY) Aged Out No longer eligible based on [...] Recently Relevant to Health Maintenance Care Teams Audio Visual Specialist Relationship Specialty Start Date End Date Will Verdugo MD [address] [place] [id number] PCP - General Family Medicine 05/31/15
--- OUTSIDE RECORDS SUMMARY | 2024-11-10 11:52 | XMS_ITS | Clinical Summary ---
Author Organization [facility] Address [facility] [place] [address] Care Team Providers Care Environmental Health Safety Engineer Name Role Phone Yazmin Drake MD Primary Care Provider [phone] Allergies Active Allergy Reactions Criticality Noted Date [...] Used Date Smoking Tobacco: Former Cigarettes 1 17.7 2 008 - 1987 Smokeless Tobacco: Never Tobacco Cessation:Counseling Given: Not Answered Alcohol Use Standard Drinks/Week Comments Not Currently 0 (1 standard drink = 0.6 oz pur e alcohol) occasional [facility] Utilities Answer Date Recorded In the past 12 months has th e [employer], gas, oil, or water company threatened to [...] any time in the past 12 m [facility], were you homeless or living in a jail (including now)? No 08/25/2023 Sex and Gender [...] 8:40 AM CDT Height 172.7 cm (5' 8) 08/25/2023 8:40 AM CDT Body Mass Index [...] R, RN Medical Devices Implanted Type Area Logging Supervisor Device Identifier Shelf Expiration Date Model / Serial / Lot Agent Hemostatic Thrombin Sterile Kit Matrix Surgiflo 8ml - [id number] Implanted:Qty: 1 on 08/25/2023 by Graceila Brandt MD at [facility] [employer] / / Insurance [facility] Advance Directives * Full Code (Latest Code Status on File) Date Activated Date Inactivated Comments 08/25/2023 2:30 PM 08/26/2023 4:24 PM Care Teams Environmental Health Safety Engineer Relationship Specialty Start Date End Date Yazmin Drake MD [address] [place] [address] PCP - General FAMILY PRACTICE 08/17/23
[2024-11-10 13:27] LABS: Hematocrit 48.8 % (42.0-52.0); Hemoglobin 16.1 g/dL (14.0-18.0); Immature Granulocyte Percent A 0.5 % (0-0.5); Lymphocytes Absolute Auto 3.01 K/mm3 (0.9-3.2); Mean Corpuscular HGB Conc 33.0 g/dl (32-36); Mean Corpuscular Hemoglobin 29.7 pg (26-34); Mean Corpuscular Volume 89.9 fl (80-100); Nucleated Red Blood Cells Absolute Auto 0.000 K/mm3 (0.0-0.012); Nucleated Red Blood Cells Perc 0.0 % (0.0-0.2); Platelet Count Result 310 k/mm3 (150-375); Red Blood Count 5.43 M/mm3 (4.6-6.20); White Blood Count 10.9 K/mm3 (4.5-10.0)
[2024-11-10 13:38] LABS: Add Urine Microscopic? YES; Appearance Urine Clear (Clear); Glucose Urine UA Negative (Negative); Leukocyte Esterase Ur Negative LEU/UL (Negative); Need Manual Microscopic Reviewed; Nitrate Urine Negative (Negative); Non Pathogenic Casts 0-2; Specific Grav Ur 1.024 (1.001-1.035)
[2024-11-10 13:38] LABS: INR 1.1; Prothrombin Time 14.1 Seconds (11.1-14.7)
[2024-11-10 13:39] LABS: Partial Thromboplastin Time 27.7 Seconds (22.3-36.8)
[2024-11-10 13:49] LABS: Albumin Level 5.0 g/dL (3.5-5.1); Anion Gap 8 mmol/L (4-12); Blood Urea Nitrogen 16 mg/dL (9-20); Calcium 9.9 mg/dL (8.4-10.2); Carbon Dioxide 25 mmol/L (22-30); Chloride 104 mmol/L (98-107); Estimated Glomerular Filt Rate > 60; Glucose 90 mg/dL (65-110); Potassium 4.3 mmol/L (3.4-5.0); Sodium 137 mmol/L (137-145)
[2024-11-10 13:51] LABS: Hemoglobin A1C 5.3 % (<5.7)
[2024-11-10 14:39] LABS: MRSA (PCR) NOT DETECTED (NOT DETECTE)
== END 2024-11-10 11:46 | disposition home or self-care (01) ==
LOC: ANHSURGERY 11:50
PROVIDERS: PCP Family Medicine; Visit Provider Orthopaedic Surgery
DX: M17.11 Unilateral primary osteoarthritis, right knee (principal); Z01.818 Encounter for other preprocedural examination
CPT/HCPCS: 80048; 80307; 81001; 82040; 83036; 85025; 85610; 85730; 87641

== ENCOUNTER 2024-11-29 00:39 | Day surgery (SDC) | payer OTHER, SELFPAY ==
[2024-11-10 12:19] VITALS: BP 125/70; PULSE 69; RESP 16; TEMP 36.3; O2SAT 99; BMI 38.4
--- NOTE | 2024-11-10 12:36 | PC.NURSE ---
Report to the Outpatient Waiting Room, entrance under the green pavilion located off [facility], at time _06:00am on date _11/29/24 . Planned Procedure Time: _0730am .? Time changes happen often and if your time is changed the preop area will call you the afternoon before. - You and your visitor will be asked to self-screen and do not enter if you have any COVID symptoms. Please call surgeon if you need to reschedule. - A mask is optional within the hospital at this time. Patients may have clear liquids (water, carbonated beverages, clear teas, apple juice) until 3 hours prior to surgery with a maximum of 20 ounces. - No food from midnight until time of surgery and no smoking, or chewing tobacco (or any form of nicotine). No chewing gum, candy or mints. (0430am) Take only the following medications with a SIP of water on the morning of surgery: ____NONE DO NOT STOP ANY OF YOUR OTHER PRESCRIPTION MEDICATIONS PRIOR TO SURGERY EXCEPT THE FOLLOWING Hold all vitamins and supplements for 3 days per anesthesiologist.Date of last dose is 11/25/24 Medications to discontinue per physician ____Celebrex to check with Dr Bejarano regarding this HOLD Monjouro for [address] Bejarano. Date to take last dose__11/21/24 Please no make-up, nail greenlandic, hairspray, perfume, deodorant, or body powder the day of surgery.? No jewelry (including any body piercings) or valuables the day of surgery, leave them at home.? Please take a shower or bath the night before, or the morning of, surgery with an antibacterial soap. HIBICLEANSE if ordered. ? Wear comfortable, loose fitting clothing.? Bring overnight bag, cell phone, walker - Jewelry must be removed prior to entering the operating room.? Rings and piercings that are not removed may be cut off. - The hospital will not accept responsibility for valuables.? - Please leave all valuables, including medications, at home the day of surgery. If you are going home after surgery, a licensed class a regional truck driver must drive you home.? - NO public transportation without another adult if you receive anesthesia. - We recommend that an adult stay with you for 24 hours following discharge. - We also recommend that you do not drive, make important decision, drink alcoholic beverages, or take any drugs that were not prescribed by your health care provider for at least 24 hours after your discharge time. Follow any additional instructions given to you from your surgeon. Telephone instructions given to ____Patient & and asked if any additional questions and then verbalized understanding. Patient advised to call surgeon office or pre surgery nurse liaison [phone] if any additional questions.
[2024-11-29] VITALS (16 sets, daily range): BP systolic 105–149; BP diastolic 70–86; PULSE 67–83; RESP 14–20; TEMP 35.9–36.8; O2SAT 94–99; BMI 40.1
--- NOTE | ~2024-11-29 | XR_ITS ---
EXAMINATION: [id number] DATE: 11/29/2024 10:30 INDICATION: Postoperative evaluation following right total knee arthroplasty. TECHNIQUE: Anteroposterior and lateral views of the right knee were obtained. COMPARISON: Right knee radiographs dated 10/24/2024 FINDINGS: Right total knee arthroplasty without patellar resurfacing appears well seated and in near anatomic alignment. Interval cheilectomy of a prominent osteophyte at the proximal pole of the patella. Heterotopic ossification versus loose osteochondral bodies projecting over the soft tissues posterolateral to the right knee potentially within the popliteal recess. No fractures identified. Expected postoperative subcutaneous and intra-articular gas. IMPRESSION: 1. Right total knee arthroplasty, negative for postoperative purposes. Reviewed, dictated and finalized at location A.
--- OUTSIDE RECORDS SUMMARY | 2024-11-29 00:41 | XMS_ITS | Clinical Summary ---
Author Organization [facility] Address [address] [place] [address] Phone Care Team Providers Care Wood Craftsman Name Role Phone Will Verdugo MD Primary Care Provider [phone] Allergies Active Allergy Reactions Criticality Noted Date Comments Penicillins Hives 05/31/2015 Sulfa Antibiotics Rash 05/31/2015 Medications Testosterone 200 MG PELLET by Intramuscular route every 10 days. Active losartan (COZAAR) 50 MG Tablet Take 50 mg by mouth daily. Active Multiple Vitamins-Shot Hole Driller als (MULTIVITAMIN PO) Take 1 Tab by mouth daily. Active [place]-3 Fatty Acids (FISH OIL PO) Take 1 [...] Recently Relevant to Health Maintenance Care Teams Wood Craftsman Relationship Specialty Start Date End Date Will Verdugo MD [address] [place] [id number] PCP - General Family Medicine 05/31/15
--- OUTSIDE RECORDS SUMMARY | 2024-11-29 00:41 | XMS_ITS | Clinical Summary ---
Author Organization [facility] al Address [address] [place] [address] Care Team Providers Care Abrasives Sales Representative Name Role Phone Yazmin Drake MD Primary Care Provider [phone] Allergies Active Allergy Reactions Criticality Noted Date [...] on file Legal Sex Male 12:13 AM OB NURSE Gender Identity Not on file Sexual Orientation Not on file Obstetrics History Last Filed Vital Signs Vital Sign Reading Time Taken Comments Blood Pressure 160/88 05/15/2023 11:59 AM OB NURSE Pulse 78 05/15/2023 11:59 AM OB NURSE Temperature - - Respiratory Rate - - [...] (1 of 2) 2017 Covid-19 Vaccine (3 - 2024-2 6 season) 2024 05/28/2020, 05/06/2020 Influenza Vaccine (#1) 2024 5, 08/01/2014 Pneumococcal vaccine <65 Aged Out No longer eligible based on patient's age to complete this topic Insurance [facility] CHOICE PLUS [facility] CHOICE PLUS [facility] CHOICE PLUS Care Teams Abrasives Sales Representative Relationship Specialty Start Date End Date Yazmin Drake MD PCP - General Family Medicine 05/15/23
--- OUTSIDE RECORDS SUMMARY | 2024-11-29 00:41 | XMS_ITS | Encounter Summary ---
Author Organization [facility] Healthcare Address [address] [place] [address] Care Team Providers Care Optic Fibre Drawer Name Role Phone Will Verdugo MD Primary Care Provider [phone] Yazmin Drake MD Primary Care Provider [phone] Encounter Details Date Type Department Care Team (Late st Contact Info) Description 09/07/2019 Telephone [facility] [address] [place] [address] Allegra Rae RT Social History Tobacco Use Types Packs/Day Years Used Date Smoking Tobacco: Never Assessed Sex and Gender Information Value Date Recorded Sex Assigned at Not on file 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
--- OUTSIDE RECORDS SUMMARY | 2024-11-29 00:41 | XMS_ITS | Clinical Summary ---
Author Organization [facility] Address [facility] [place] [address] Care Team Providers Care Burr Mill Operator Name Role Phone Yazmin Drake MD Primary Care Provider [phone] Allergies Active Allergy Reactions Criticality Noted Date [...] = 0.6 oz pur e alcohol) occasional [facility] Utilities Answer Date Recorded In the past 12 months has th e [employer], gas, oil, or water company threatened to [...] any time in the past 12 m [facility], were you homeless or living in a intermediate (including now)? No 08/25/2023 Sex and Gender [...] Vaccines (1 of 2) 2017 COVID-19 Vaccine (3 - 2024-2 6 season) 2024 05/28/2020, 05/06/2020 Meningococcal B Vaccine Aged Out [...] R, RN Medical Devices Implanted Type Area Shake Sawyer Device Identifier Shelf Expiration Date Model / Serial / Lot Agent Hemostatic Thrombin Sterile Kit Matrix Surgiflo 8ml - [id number] Implanted:Qty: 1 on 08/25/2023 by Graciela Brandt MD at [facility] [employer] / / Insurance [facility] Advance Directives * Full Code (Latest Code Status on File) Date Activated Date Inactivated Comments 08/25/2023 2:30 PM 08/26/2023 4:24 PM Care Teams Burr Mill Operator Relationship Specialty Start Date End Date Yazmin Drake MD [address] [place] [address] PCP - General FAMILY PRACTICE 08/17/23
[2024-11-29] MEDS: ACETAMINOPHEN 500 MG TABLET 1000 MG PO (06:27)
[2024-11-29] MEDS: LACTATED RINGERS 1,000 ML 30 ML IV CONT ×2 (06:30→10:21)
[2024-11-29] MEDS: TRANEXAMIC ACID 1,000MG/ISO100 1,000 MG/100 ML BAG 200 MG IVPB (06:40)
--- NOTE | 2024-11-29 07:10 | WPDHPUPDATE1 ---
History and Physical Update Update Date/Time: 11/29/24 07:10 History and Physical has been reviewed, including an updated exam of the patient. There are NO changes in the patient's condition. Risks, benefits, and alternatives have been discussed and questions answered. Patient agrees to proceed with procedure.
--- NOTE | 2024-11-29 07:14 | WPDANESEPPF ---
Anes - Initial Pre Proc Eval Procedure: Operation Date: 11/29/24 07:30 Proposed Procedures p Right Total Knee Arthroplasty - Roc Bejarano MD Date/Time: 11/29/24 07:14 Surgeon: Roc Bejarano MD Pre Op Diagnosis: rt knee djd Patient Data Age: 59 Gender: M Height: 1.75 m Weight: 123.2 kg Last Vital Signs Temp 98.2 F 11/29/24 06:10 Pulse 73 11/29/24 06:10 Resp 18 11/29/24 06:10 BP 143/76 H 11/29/24 06:10 Pulse Ox 98 11/29/24 06:10 O2 Del Method Room Air 11/29/24 06:10 Allergies Allergy/AdvReac Type Severity Reaction Status Date / Time Penicillins Allergy Unknown RASH Verified 11/29/24 07:11 Sulfa (Sulfonamide Allergy Unknown LOSS OF Verified 11/29/24 07:11 Antibiotics) CONCIOUSNESS Home Medications ?Medication ?Instructions ?Recorded ?Confirmed ?Type calcium fructoborate 216 mg tablet 216 mg PO DAILY 05/15/20 11/29/24 History (Move Free Ultra Faster Comfort) multivitamin 1 tablet PO DAILY 05/15/20 11/29/24 History omega-3 fatty acids 1,000 mg 1,000 mg PO DAILY 05/15/20 11/29/24 History capsule vitamin B complex 1 cap PO DAILY 05/15/20 11/29/24 History ascorbic acid (vitamin C) 1,000 mg 1 g PO DAILY 07/17/21 11/29/24 History tablet losartan 50 mg tablet See Rx Instructions .Route 01/25/24 11/29/24 Rx .COMPLEX #90 tabs metformin 500 mg tablet,extended 1,000 mg (2 x 500 mg) PO DAILY 90 03/18/24 11/29/24 Rx release 24 hr days #180 tabs celecoxib 200 mg capsule (Celebrex) 200 mg PO BID #60 caps 10/05/24 11/29/24 Rx tirzepatide 7.5 mg/0.5 mL 7.5 mg (0.5 mL) subcut WEEKLY #2 mL 10/25/24 11/29/24 Rx subcutaneous pen injector (Mounjaro) hydrochlorothiazide 25 mg tablet See Rx Instructions .Route 11/01/24 11/29/24 Rx .COMPLEX #90 tabs chlorhexidine gluconate 4 % 1 applic topical ONCE #237 mL 11/17/24 11/29/24 Rx topical liquid (Hibiclens) Laboratory Tests 11/29/24 11/29/24 06:38 06:39 POC Capillary Glucose 110 H mg/dl (65-105) Blood Type Pending Antibody Screen Pending Patient hx anesthesia problems: none Family hx anesthesia problems: none Results Review: All pre-operative results and documents have been reviewed as part of the pre-operative evaluation. FOR[facility]LY [facility] Past Medical History Medical History Right knee pain Hip pain Hypertension Hypogonadism in male Carpal tunnel syndrome Surgical History Surgical History S/P total hip arthroplasty Left TRISTA 08/10/24- Dr. Bejarano History of spinal surgery Hx of colonoscopy age 52 History of placement of ear tubes as child History of knee surgery (~1987) right knee History of carpal tunnel surgery (~2015) both hands Family History Family History Unknown Hypertension Heart disease Diabetes mellitus High cholesterol Uterine cancer Social History Social History Smoking packs per day: 1 Smoking cigarettes per day: 20.0 Years smoked: 20 Smoking pack-years: 20.00 Smoking status: Former smoker Additional smoking assessment comments: DENIES ANY FORM OF TOBACCO USE Alcohol intake: current Drinks per week: 1 Alcohol use details: consumes beer occasionally Substance use: never Substance use type: does not use Other substance usage details: gummmies in past very rarely Do You Feel Safe in your Home?: Yes Lack of Transportation: No Lack of Food: Never True Current Housing: I Have Housing Concerned About Future Housing: No Difficulty Paying Gas/Electric Bills: No Difficulty Paying for Meds: No Currently Unemployed: No Education: High School Diploma/GED Difficulty w/ Childcare or Family Care: No Living arrangements: with family Additional living arrangements comments: Occupation/Education: occupation 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 HTN, DM w fsbs 110, EKG reviewed. Informed Consent: The patient's anesthetic plan and its attendant risks and benefits were discussed with the patient/family/POA. Questions were solicited and answers provided to the satisfaction of the patient/family/POA.
--- NOTE | 2024-11-29 07:31 | WPDANESPNB ---
Anes - Peripheral Nerve Block Date/Time: 11/29/24 07:31 I have discussed with the patient/family/POA the placement of a peripheral nerve block for post-operative pain management, including associated risks, benefits, complications, and side effects. Alternative methods of post-operative analgesia were detailed. Questions were solicited and answers provided to the satisfaction of the patient/family/POA. Time-Out: A pre-procedural Time-Out was completed immediately before starting the procedure and confirmed: Patient Identification, Site, Procedure, Patient Position and the Availability of Requisite Equipment. Clinical Indications: Acute post-operative pain management requested by the operative surgeon. Nerve Block Insertion Note Anes-nerve block: adductor canal right Patient position: supine Skin prep: chlorhexidine Needle: 22 gauge, stimulating, insulated echogenic needle. Needle length: 80 mm Technique: ultrasound Injectate: other (Bupiv 0.5% 15 mls. ) Observations: tolerated well Procedure start time:: 720 Procedure end time:: 726
[2024-11-29] MEDS: SODIUM CHLORIDE 0.9% IV 37.7 ML, MORPHINE SULFATE INJ (*CRX) 2 MG, ROPivacaine HCL 1% 2... INFILTRATE (07:32)
[2024-11-29] MEDS: ceFAZolin 3 GM/D5W 100 ML 100 ML IVPB (07:32)
[2024-11-29] MEDS: TRANEXAMIC ACID 1,000 MG/10 ML AMPUL 1000 MG IV PUSH (09:40)
[2024-11-29] MEDS: fentaNYL CITRATE INJ (*CRX) 100 MCG/2 ML VIAL 25 MCG IV PUSH ×8 (10:27→10:58)
--- NOTE | 2024-11-29 10:39 | W.PM.PROC2 ---
Procedure Note - Detailed Date of Procedure 11/29/24 Pre-op Diagnosis rt knee djd Post-op Diagnosis Same Procedure Performed R TKA Surgeon Roc Bejarano MD Anesthesia General Description of Procedure THE RIGHT KNEE WAS PREPPED AND DRAPED IN THE STERILE FASHION. A MIDLINE SKIN INCISION WAS MADE. A MEDIAL PARAPATELLAR ARTHROTOMY WAS MADE. THE PATELLA WAS EVERTED. THERE WAS TRICOMPARTMENT DJD WITH VALGUS DEFORMITY. AN INTRAMEDULLARY REAGAN WAS PLACED IN THE FEMUR. A DISTAL FEMORAL CUT WAS MADE IN 5 DEGREES OF VALGUS REMOVING APPROXIMATELY 8 MM OF BONE FROM THE DISTAL FEMUR. THE FEMUR WAS SIZED TO 5. A 5 FEMORAL CUTTING BLOCK WAS PLACED IN 3 DEGREES OF EXTERNAL ROTATION AND IN ALIGNMENT WITH KALIE'S LINE AND THE TRANSEPICONDYLAR AXIS. ANTERIOR POSTERIOR AND CHAMFER CUTS WERE MADE. THE CUTS WERE EXCELLENT. NEXT AN INTRAMEDULLARY CUTTING GUIDE WAS PLACED IN THE TIBIA. A TRANS TIBIAL CUT WAS MADE ALONG THE LONG AXIS OF THE TIBIA. APPROXIMATELY 8 MM OF BONE WAS REMOVED FROM THE HIGH SIDE OF THE TIBIA. THE TIBIA WAS THEN PLANED TO A SMOOTH SURFACE. POSTERIOR FEMORAL OSTEOPHYTES WERE REMOVED FROM THE FEMORAL CONDYLES. A 6 TIBIAL TRIAL WAS PLACED IN ALIGNMENT WITH THE 1/3 MEDIAL ASPECT OF THE TIBIAL TUBERCLE. THEN A 5 FEMORAL TRIAL COMPONENT WAS PLACED. BOTH HAD EXCELLENT FITS. EVENTUALLY A 10 MM CR POLYETHYLENE TRIAL COMPONENT WAS PLACED. THE KNEE WAS TAKEN THROUGH A RANGE OF MOTION. THE KNEE CAME OUT TO FULL EXTENSION. THERE WAS NO ABNORMAL TILT TO THE PATELLA. THERE WAS GOOD A/P AND VARUS/VALGUS STABILITY. THERE WAS NO EXCESSIVE ROLL BACK WITH FLEXION. THE TRIAL COMPONENTS WERE REMOVED. THEN A GUSTABO 5 FEMORAL COMPONENT AND 6 TIBIAL COMPONENT WITH A 14 CS POLYETHYLENE COMPONENT WERE PRESS FIT INTO PLACE. THE COMPONENTS WER FLUSH WITH THE BONE SURFACE. THE KNEE WAS TAKEN THROUGH A ROM AGAIN AND FOUND TO BE STABLE WITH NO PATELLA TILT NO EXCESSIVE ROLL BACK WITH FLEXION AND GOOD STABILITY WITH COMPLETE AND FULL EXTENSION. THE KNEE WAS IRRIGATED WITH STERILE BETADINE AND WATER FOR ABOUT 3 MINUTES. THE BLEEDERS WERE CAUTERIZED. THE ARTHROTOMY WAS REPAIRED WITH NUMBER 1 VICRYL. THE SUB CUTANEOUS LAYER WITH 2-0 VICRYL AND THE SKIN WITH AARON. THE WOUND WAS WASHED AND A STERILE DRESSING WAS APPLIED. PATIENT WAS EXTUBATED. Estimated Blood Loss -150.0 Pathology None sent Complications No immediate complications Condition Stable Disposition PACU
[2024-11-29] MEDS: KETOROLAC 30 MG/ML VIAL (*BKC) IV PUSH (10:41)
[2024-11-29] MEDS: HYDROmorphone HCL INJ (*CRX) 1 MG/ML SYR 0.25 MG IV PUSH ×4 (10:55→11:10)
--- NOTE | 2024-11-29 11:30 | SUR.PHASEI ---
Patient meets PACU discharge criteria, unit bed unavailable at this time. Patient placed in extended recovery status.
[2024-11-29] MEDS: oxyCODONE HCL (*CRX) 5 MG TAB IR PO (11:33)
[2024-11-29] MEDS: ASPIRIN 325 MG ENTERIC TABLET PO ×2 (12:54→22:24)
[2024-11-29] MEDS: KETOROLAC 15 MG/ML VIAL (*BKC) IV PUSH ×3 (12:54→23:32)
[2024-11-29] MEDS: SENNA/DOCUSATE SODIUM TABLET 2 TAB PO ×2 (12:55→16:07)
[2024-11-29] MEDS: oxyCODONE/ACETAMINOPHEN (*CRX) 5-325 MG TABLET 1 TABLET PO (12:55)
[2024-11-29] MEDS: metFORMIN HCL XR 500 MG TAB.SR.24H 1000 MG PO (12:55)
[2024-11-29] MEDS: FAMOTIDINE 20 MG TABLET PO ×2 (12:55→22:24)
[2024-11-29] MEDS: SODIUM CHLORIDE 0.9% IV 1,000 ML 125 ML IV CONT (12:55)
--- NOTE | 2024-11-29 13:31 | ADMGEN ---
This patient, Ned Flores, was admitted to [facility] Surg Room 332-01. Patient/family oriented to hospital policies and general routines including ID bracelet, bed and alarms, visiting hours, pain management, procedures, bathroom and other care routines, personal items, smoking policy, room service/diet, and visiting hours. Information on how to activate the Rapid Response Team has been discussed. Patient/Family are encouraged to report perceived risks to care and to ask questions if they do not understand what they are told or what they should do. patient arrived at 1218 and received report from Johana
[2024-11-29] MEDS: ceFAZolin 2 GM in SODIUM CHLORIDE 0.9% IV 50 ML 100 ML IVPB ×2 (16:07→23:33)
[2024-11-29] MEDS: oxyCODONE/ACETAMINOPHEN (*CRX) 10-325 MG TABLET 1 TAB PO ×2 (17:08→22:38)
[2024-11-30 01:22] VITALS: BP 112/60; PULSE 71; RESP 16; TEMP 36.4; O2SAT 96
[2024-11-30] MEDS: HYDROmorphone HCL INJ (*CRX) 1 MG/ML SYR IV PUSH (01:25)
[2024-11-30] MEDS: KETOROLAC 15 MG/ML VIAL (*BKC) IV PUSH ×2 (05:42→13:19)
[2024-11-30 05:59] VITALS: BP 104/59; PULSE 65; RESP 16; TEMP 36.5; O2SAT 99
[2024-11-30 06:18] LABS: Hematocrit 40.1 % (42.0-52.0); Hemoglobin 12.7 g/dL (14.0-18.0); Immature Granulocyte Percent A 0.5 % (0-0.5); Lymphocytes Absolute Auto 2.69 K/mm3 (0.9-3.2); Mean Corpuscular HGB Conc 31.7 g/dl (32-36); Mean Corpuscular Hemoglobin 29.3 pg (26-34); Mean Corpuscular Volume 92.4 fl (80-100); Nucleated Red Blood Cells Absolute Auto 0.000 K/mm3 (0.0-0.012); Nucleated Red Blood Cells Perc 0.0 % (0.0-0.2); Platelet Count Result 288 k/mm3 (150-375); Red Blood Count 4.34 M/mm3 (4.6-6.20); White Blood Count 16.6 K/mm3 (4.5-10.0)
[2024-11-30 06:33] LABS: Anion Gap 7 mmol/L (4-12); Blood Urea Nitrogen 18 mg/dL (9-20); Calcium 9.2 mg/dL (8.4-10.2); Carbon Dioxide 27 mmol/L (22-30); Chloride 102 mmol/L (98-107); Estimated CRCL calculation 110 ml/min; Estimated Glomerular Filt Rate > 60; Glucose 108 mg/dL (65-110); Potassium 4.4 mmol/L (3.4-5.0); Sodium 136 mmol/L (137-145)
[2024-11-30] MEDS: LOSARTAN POTASSIUM 50 MG TABLET BY MOUTH (08:28)
[2024-11-30] MEDS: metFORMIN HCL XR 500 MG TAB.SR.24H 1000 MG PO (08:28)
[2024-11-30] MEDS: SENNA/DOCUSATE SODIUM TABLET 2 TAB PO (08:28)
[2024-11-30] MEDS: ASPIRIN 325 MG ENTERIC TABLET PO (08:28)
[2024-11-30] MEDS: FAMOTIDINE 20 MG TABLET PO (08:28)
[2024-11-30] MEDS: ceFAZolin 2 GM in SODIUM CHLORIDE 0.9% IV 50 ML 100 ML IVPB (08:29)
[2024-11-30] MEDS: oxyCODONE/ACETAMINOPHEN (*CRX) 10-325 MG TABLET 1 TAB PO ×2 (08:30→14:41)
[2024-11-30 09:59] VITALS: BP 111/48; PULSE 70; RESP 14; TEMP 36.8; O2SAT 97
--- NOTE | 2024-11-30 13:49 | WPDANESPN ---
Anes - Prog Note Post-Op Date/Time: 11/30/24 13:49 Cardiovascular status: normal Respiratory status: normal Airway patency: baseline Mental status: baseline Post-Op hydration status: normal Vital Signs: Last Vital Signs Temp 36.8 C 11/30/24 09:59 Pulse 70 11/30/24 09:59 Resp 14 11/30/24 09:59 BP 111/48 L 11/30/24 09:59 Pulse Ox 97 11/30/24 09:59 O2 Del Method Room Air 11/30/24 08:00 O2 Flow Rate 8 11/29/24 10:36 Pain Score (VAS): 2 I/O: Intake & Output 11/29/24 11/30/24 11/30/24 23:59 07:59 15:59 Intake Total 640 50 476 Balance 640 50 476 Laboratory Tests 11/30/24 05:31 11/30/24 05:31 11/30/24 05:31 WBC 16.6 H RBC 4.34 L Hgb 12.7 L D Hct 40.1 L MCV 92.4 MCH 29.3 MCHC 31.7 L RDW 13.4 Plt Count 288 MPV 10.4 Immature Gran % (Auto) 0.5 Neut % (Auto) 73.6 H Lymph % (Auto) 16.2 L [place] % (Auto) 8.9 H Eos % (Auto) 0.4 Baso % (Auto) 0.4 Lymph # (Auto) 2.69 [place] # (Auto) 1.5 H Eos # (Auto) 0.1 Baso # (Auto) 0.1 Abs Immat Gran (auto) 0.08 H Absolute Neuts (auto) 12.3 H Absolute Nucleated RBC 0.000 Nucleated RBC % 0.0 Sodium 136 L Potassium 4.4 Chloride 102 Carbon Dioxide 27 Anion Gap 7 BUN 18 Creatinine 0.84 Estim Creat Clear Calc 110 Estimated GFR > 60 Glucose 108 Calcium 9.2 Post-procedural complaints: none Patient Feedback: Patient satisfied with anesthetic care.
[2024-11-30 13:59] VITALS: BP 108/64; PULSE 80; RESP 14; TEMP 36.6; O2SAT 100
--- NOTE | 2024-11-30 15:05 | P.PNOP_ITS ---
Progress Note: A&P Assessment and Plan (1) S/P total knee arthroplasty: Code(s): Z96.659 - Presence of unspecified artificial knee joint Status: Acute Assessment and Plan: POD 1 DOING WELL. OK TO DC HOMER F/U IN 3 WEEKS Subjective Subjective Date/Time Seen: 11/30/24 15:05 Interval history: pod 1 doing well. NO CALF PAIN. GOOD PROGRESS WITH PT. PAIN WELL CONTROLLED. Exam Extrem: Other: VSS AFEBRILE DRESSING DRY NV INTACT NEG HOMANS SIGN. CALF SOFT NON TENDER Objective Data Vital Signs Vital Signs: Vital Signs - 24 hr 11/29/24 15:22 11/29/24 16:00 11/29/24 20:00 Temperature Pulse Rate 83 71 Respiratory Rate 18 16 Blood Pressure 148/86 H Pulse Oximetry 98 97 Oxygen Delivery Room Air Room Air 11/29/24 21:59 11/30/24 01:22 11/30/24 05:59 Temperature 36.3 C L 36.4 C 36.5 C Pulse Rate 71 71 65 Respiratory Rate 16 16 16 Blood Pressure 105/82 112/60 104/59 L Pulse Oximetry 97 96 99 Oxygen Delivery 11/30/24 08:00 11/30/24 09:59 Temperature 36.8 C Pulse Rate 70 Respiratory Rate 14 Blood Pressure 111/48 L Pulse Oximetry 97 Oxygen Delivery Room Air Intake/Output Intake/Output: Intake & Output 11/27/24 11/28/24 11/29/24 11/30/24 23:59 23:59 23:59 23:59 Intake Total 2340 526 Balance 2340 526 Meds/Results Medications: Active Medications Generic Name Dose Route Start Last Admin Trade Name Freq PRN Reason Stop Dose Admin Acetaminophen 500 mg 11/29/24 12:14 Acetaminophen 500 Mg Tablet PO Q6H PRN Pain Rated 1-3 Aspirin 325 mg 11/29/24 12:14 11/30/24 08:28 Aspirin 325 Mg Enteric Tablet PO 325 mg Q12HR BLAIRE Administration Diazepam 5 mg 11/29/24 12:14 Diazepam (*Crx) 5 Mg Tablet PO Q8H PRN Spasms Diphenhydramine HCl 25 mg 11/29/24 12:14 11/30/24 05:42 Diphenhydramine Hcl Inj 50 Mg/Ml Vial IV PUSH 25 mg Q6H PRN Administration Itching Famotidine 20 mg 11/29/24 12:14 11/30/24 08:28 Famotidine 20 Mg Tablet PO 20 mg Q12HR BLAIRE Administration Hydrochlorothiazide 25 mg 11/30/24 09:00 11/30/24 08:28 Hydrochlorothiazide 25 Mg Tablet BY MOUTH 25 mg DAILY BLAIRE Administration Hydromorphone HCl 1 mg 11/29/24 12:14 11/30/24 01:25 Hydromorphone Hcl Inj (*Crx) 1 Mg/Ml Syr IV PUSH 1 mg Q2H PRN Administration Breakthrough Pain Rated 7-10 or NPO Hydromorphone HCl 0.5 mg 11/29/24 12:14 Hydromorphone Hcl Inj (*Crx) 1 Mg/Ml Syr IV PUSH Q2H PRN Breakthrough Pain Rated 4-6 or NPO Ibuprofen 800 mg in 200 mls @ 400 mls/hr 11/29/24 12:14 Caldolor 800 Mg/200 Ml IVPB Q6H PRN Breakthrough Pain Rated 1-3 or NPO Losartan Potassium 50 mg 11/30/24 09:00 11/30/24 08:28 Losartan Potassium 50 Mg Tablet BY MOUTH 50 mg DAILY BLAIRE Administration Metformin HCl 1,000 mg 11/29/24 12:14 11/30/24 08:28 Metformin Hcl Xr 500 Mg Tab.Sr.24h PO 1,000 mg DAILY BLAIRE Administration Naloxone HCl 0.1 mg 11/29/24 12:14 Naloxone Hcl 0.4 Mg/Ml Vial IV PUSH Q2M PRN Opiate Reversal Ondansetron HCl 4 mg 11/29/24 12:14 Ondansetron Inj 4 Mg/2 Ml Vial IV PUSH Q4H PRN Nausea And Vomiting Oxycodone/Acetaminophen 1 tablet 11/29/24 12:14 11/29/24 12:55 Oxycodone/Acetaminophen (*Crx) 5-325 Mg Tablet PO 1 tablet Q4H PRN Administration Pain Rated 4-6 Oxycodone/Acetaminophen 1 tab 11/29/24 12:14 11/30/24 14:41 Oxycodone/Acetaminophen (*Crx) 10-325 Mg Tablet PO 1 tab Q6H PRN Administration Pain Rated 7-10 Polyethylene Glycol 17 gm 11/29/24 12:14 11/30/24 08:29 Polyethylene Glycol 3350 17 Gm Powd.Pack PO 17 gm QAM BLAIRE Administration Senna/Docusate Sodium 2 tab 11/29/24 12:14 11/30/24 08:28 Senna/Docusate Sodium Tablet PO 2 tab BID BLAIRE Administration Radiology Results: ITS Impressions Knee X-Ray 11/29/24 10:32 IMPRESSION: 1. Right total knee arthroplasty, negative for postoperative purposes. Labs Labs: Laboratory Results - last 24 hr 11/30/24 05:31 WBC 16.6 H RBC 4.34 L Hgb 12.7 L D Hct 40.1 L MCV 92.4 MCH 29.3 MCHC 31.7 L RDW 13.4 Plt Count 288 MPV 10.4 Immature Gran % (Auto) 0.5 Neut % (Auto) 73.6 H Lymph % (Auto) 16.2 L [place] % (Auto) 8.9 H Eos % (Auto) 0.4 Baso % (Auto) 0.4 Lymph # (Auto) 2.69 [place] # (Auto) 1.5 H Eos # (Auto) 0.1 Baso # (Auto) 0.1 Abs Immat Gran (auto) 0.08 H Absolute Neuts (auto) 12.3 H Absolute Nucleated RBC 0.000 Nucleated RBC % 0.0 Sodium 136 L Potassium 4.4 Chloride 102 Carbon Dioxide 27 Anion Gap 7 BUN 18 Creatinine 0.84 Estim Creat Clear Calc 110 Estimated GFR > 60 Glucose 108 Calcium 9.2
== END 2024-11-30 16:42 | disposition home or self-care (01) ==
LOC: ANHSURGERY 06:01 → ANH3MEDSUR 13:54
PROVIDERS: PCP Family Medicine; Visit Provider Orthopaedic Surgery
PROC: (CPT 27447; principal; 2024-11-29 07:30)
DX: M17.11 Unilateral primary osteoarthritis, right knee (principal); M25.761 Osteophyte, right knee; G89.29 Other chronic pain; I10 Essential (primary) hypertension; E11.9 Type 2 diabetes mellitus without complications; E29.1 Testicular hypofunction; G89.18 Other acute postprocedural pain; F12.90 Cannabis use, unspecified, uncomplicated; E66.9 Obesity, unspecified; Z68.41 Body mass index [BMI] 40.0-44.9, adult; Z79.84 Long term (current) use of oral hypoglycemic drugs; Z79.1 Long term (current) use of non-steroidal anti-inflammatories (NSAID); Z79.85 Long-term (current) use of injectable non-insulin antidiabetic drugs; Z98.890 Other specified postprocedural states; Z98.1 Arthrodesis status; Z87.891 Personal history of nicotine dependence; Z80.49 Family history of malignant neoplasm of other genital organs; Z82.49 Family history of ischemic heart disease and other diseases of the circulatory system
CPT/HCPCS: 64447; 27447; 36415; 73560; 80048; 82948; 85025; 86850; 86900; 86901; 97110; 97116; 97161; 97165; 97530; 97535; J0690; A9270; C1713; C1776; J0166; J1100; J1171; J1200; J1885; J2003; J2250; J2270; J2405; J2704; J2795; J3010; J3373; J7030; J7120

== ENCOUNTER 2024-11-30 22:27 | Emergency (ER) | payer OTHER, SELFPAY ==
--- NOTE | ~2024-11-30 | US_ITS ---
RIGHT LOWER EXTREMITY VENOUS DUPLEX Clinical History: dvt r/o COMPARISON: None TECHNIQUE: Grayscale, color, duplex/spectral Doppler sonography right leg FINDINGS: Right leg common femoral, femoral, popliteal veins compressible and color Doppler patent. Calf veins poorly seen. Normal augmentation with distal compression. No internal echoes. IMPRESSION: 1. No [id number] DVT right leg. 2. Calf veins poorly seen. Reviewed, dictated and finalized at location R. IMPRESSION: 1. No [id number] DVT right leg. 2. Calf veins poorly seen.
--- NOTE | ~2024-11-30 | XR_ITS ---
EXAMINATION: XR chest 1V portable COMPARISON: No comparisons available. HISTORY: post op fever FINDINGS: The lungs are clear, no effusion. No pneumothorax. Heart is normal size. Mediastinal and hilar contours are within normal limits. Bony thorax no acute abnormality. Miscellaneous: None Impression: No acute cardiopulmonary abnormality. Reviewed, dictated and finalized at location A. Impression: No acute cardiopulmonary abnormality.
[2024-11-30 22:37] VITALS: BP 118/66; PULSE 96; RESP 18; TEMP 38.4; O2SAT 99
--- NOTE | 2024-11-30 22:51 | ED_ITS ---
HPI - Fever General Chief Complaint: Fever Stated Complaint: Fever - post op Time Seen by Provider: 11/30/24 22:40 Source: patient and family Mode of arrival: ambulatory Limitations: no limitations History of Present Illness HPI Narrative: Patient presents with report a postoperative fever. He had a right total knee replacement performed approximately 730 yesterday, 11/29/[address] Bjearano. Patient's he was able to some movement of his knee prior to discharge and was discharged today approximately 4:00 p.m. but then developed a temperature 101.9 at home and now cannot move his leg at all. Around the knee has been very warm any significant tenderness. Ten in 10 throbbing at the right knee but he also is experiencing some pain in the right thigh which is new. has some pictures from when the dressing was changed earlier today. He was sent with a an ice machine to use this a but it still felt warm regardless. Otherwise patient denies any infectious signs or symptoms such as cough, shortness of breath diarrhea. He took a Red Oak 5-325 mg tablet at approximately 6:00 p.m. and because his is going to bed 10:00 p.m. took a 2nd dose about 20 minutes earlier scheduled. This has provided him no relief. He is on aspirin but otherwise denies being on any other anticoagulation. Related Data Home Medications ?Medication ?Instructions ?Recorded ?Confirmed ?Last Taken ?Type calcium fructoborate 216 mg tablet 216 mg PO DAILY 05/0611/29/24 11/26/24 History (Move Free Ultra Faster Comfort) multivitamin 1 tablet PO DAILY 05/15/20 0 11/29/24 11/26/24 History omega-3 fatty acids 1,000 mg 1,000 mg PO DAILY 1 11/29/24 11/26/24 History capsule vitamin B complex 1 cap PO DAILY 05/15/2011/1411/26/24 History ascorbic acid (vitamin C) 1,000 mg 1 g PO DAILY 11/29/24 11/26/24 History tablet Allergies Allergy/AdvReac Type Severity Reaction Status Date / Time Penicillins Allergy Unknown RASH Verified 11/30/24 22:28 Sulfa (Sulfonamide Allergy Unknown LOSS OF Verified 11/30/24 22:28 Antibiotics) CONCIOUSNESS PMFSH Past Medical History Medical History Right knee pain Hip pain Hypertension Hypogonadism in male Carpal tunnel syndrome Surgical History Surgical History S/P total knee arthroplasty 11/29/24; Dr Bejarano S/P total hip arthroplasty Left TRISTA 08/10/24- Dr. Bejarano History of spinal surgery Hx of colonoscopy age 52 History of placement of ear tubes as child History of knee surgery (~1987) right knee History of carpal tunnel surgery (~2015) both hands Family History Family History Unknown Hypertension Heart disease Diabetes mellitus High cholesterol Uterine cancer Social History Social History (Updated 11/30/24 @ 23:14 by Angelica Marroquin MD) Social History: Smoking packs per day: 1 Smoking cigarettes per day: 20.0 Years smoked: 20 Smoking pack-years: 20.00 Smoking status: Former smoker Additional smoking assessment comments: DENIES ANY FORM OF TOBACCO USE Alcohol intake: current Drinks per week: 1 Alcohol use details: consumes beer occasionally Substance use: never Substance use type: does not use Other substance usage details: gummies in the past for sleep Do You Feel Safe in your Home?: Yes Lack of Transportation: No Lack of Food: Never True Current Housing: I Have Housing Concerned About Future Housing: No Difficulty Paying Gas/Electric Bills: No Difficulty Paying for Meds: No Currently Unemployed: No Education: High School Diploma/GED Difficulty w/ Childcare or Family Care: No Living arrangements: with family Additional living arrangements comments: Occupation/Education: occupation 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 HEAD: Normocephalic, atraumatic. EYES: Non injected, non icteric ENT: Nares clear, no rhinorrhea or epistaxis. Gross auditory acuity intact. NECK: Supple. No meningismus. CHEST: Speaking in full sentences. No respiratory distress. HEART: Regular rate and rhythm. . ABDOMEN: Soft, nondistended. No rigidity or guarding. Not peritoneal EXTREMITIES: Limited range of motion of the right knee secondary to edema and pain. 2+ right lower extremity tibial edema. SKIN: Warm, dry. There is an area of not well-circumscribed erythema just distal to the inferior surgical scar on picture has but not appreciated on examination with wound dressing in place presently. Leg is significantly warmer to the touch at the knee and , to a lesser extent, extending proximally and distally; especially when compared to contralateral leg. NEURO: Alert and oriented. Answering questions. Following commands. Normal speech without aphasia or dysarthria. Sensation intact to gross touch throughout right leg. PSYCH: Congruent mood and affect. Course Vital Signs Vital signs: Vital Signs Temperature 101.2 F H 11/30/24 22:37 Pulse Rate 96 11/30/24 22:37 Respiratory Rate 18 11/30/24 22:37 Blood Pressure 118/66 11/30/24 22:37 Pulse Oximetry 99 11/30/24 22:37 Oxygen Delivery Room Air 11/30/24 22:37 Temperature 98.9 F 12/01/24 01:12 Pulse Rate 77 12/01/24 01:12 Respiratory Rate 20 12/01/24 01:12 Blood Pressure 106/55 L 12/01/24 01:12 Pulse Oximetry 95 12/01/24 01:12 Oxygen Delivery Room Air 11/30/24 22:37 MDM - Fever MDM Narrative Medical decision making narrative: Patient presents concern for pain swelling in his right extremity. He is postop day 1 from a right total knee replacement. Temp at home 101.9F. In the emergency department he is febrile with other vital signs within normal limits. Because he had taken a Red Oak prior to arrival, additional 650 APAP ordered. US study also ordered empirically. Discussed with his orthopedic surgeon Dr Bejarano who says Continue the Percocet Rx and encourage use of incentive spirometer. Also recommended a 5 day course of toradol. Slightly worsening hyponatremia but otherwise normal renal function. He has a leukocytosis although actually improved from the day prior. His normocytic anemia is stable. His fever has defervesced. CRP and ESR both elevated. Although I felt there was a RLL PNA, not deemed as such by Stat Rad; this must rather reflect a very elevated right hemidiaphragm. No previous for comparison. Otherwise stable for DC. Advised follow up. Differential Diagnosis Differential diagnosis: Likely cellulitis, fever of unknown origin, community acquired pneumonia, viral infection and other (stress response; UTI; wound infection; DVT; drug fever/allergic reaction) Lab Data Attestation: I reviewed the patient's lab results. 11/30/24 23:24 11/30/24 23:24 Labs: Lab Results 11/30/24 12/01/24 Range/Units 23:24 01:38 WBC 15.0 H (4.5-10.0) K/mm3 RBC 3.97 L (4.6-6.20) M/mm3 Hgb 11.7 L (14.0-18.0) g/dL Hct 35.2 L (42.0-52.0) % MCV 88.7 (80-100) fl MCH 29.5 (26-34) pg MCHC 33.2 (32-36) g/dl RDW 13.3 (11.5-14.5) % Plt Count 259 (150-375) k/mm3 MPV 9.9 (7.4-10.4) fl Immature Gran % (Auto) 0.5 (0-0.5) % Neut % (Auto) 76.3 H (45.5-73.1) % Lymph % (Auto) 11.9 L (18.3-44.2) % Emery % (Auto) 10.1 H (2.6-8.5) % Eos % (Auto) 0.7 (0-4.4) % Baso % (Auto) 0.5 (0.2-1.2) % Lymph # (Auto) 1.79 (0.9-3.2) K/mm3 Emery # (Auto) 1.5 H (0.1-0.6) K/mm3 Eos # (Auto) 0.1 (0-0.3) K/mm3 Baso # (Auto) 0.1 (0.0-0.1) K/mm3 Abs Immat Gran (auto) 0.07 H (0.00-0.031) K/mm3 Absolute Neuts (auto) 11.5 H (1.3-6.7) K/mm3 Absolute Nucleated RBC 0.000 (0.0-0.012) K/mm3 Nucleated RBC % 0.0 (0.0-0.2) % ESR 100 H (0-20) mm/hr PT 16.3 H (11.1-14.7) Seconds INR 1.3 APTT 32.0 (22.3-36.8) Seconds Sodium 131 L (137-145) mmol/L Potassium 3.7 (3.4-5.0) mmol/L Chloride 100 (98-107) mmol/L Carbon Dioxide 23 (22-30) mmol/L Anion Gap 8 (4-12) mmol/L BUN 18 (9-20) mg/dL Creatinine 0.75 (0.7-1.3) mg/dL Estim Creat Clear Calc 126 ml/min Estimated GFR > 60 (59 - ) Glucose 126 H (65-110) mg/dL Calcium 8.3 L (8.4-10.2) mg/dL C-Reactive Protein 13.3 H (<1.0) mg/dL Urine Color Yellow (Yellow) Urine Appearance Cloudy H (Clear) Urine pH 5.5 (5.0-9.0) Ur Specific [place] 1.021 (1.001-1.035) Urine Protein Negative (Negative) mg/dL Urine Glucose (UA) Negative (Negative) mg/dL Urine Ketones Negative (Negative) mg/dL Ur Blood (Man) Negative (Negative) Urine Nitrate Negative (Negative) Urine Bilirubin Negative (Negative) Urine Urobilinogen 1.0 (<2.0) mg/dL Leukocyte Esterase Rfl Trace H (Negative) EDWINA/UL Urine RBC 0-2 (0-2) /hpf Urine WBC 0-5 (0-3) /hpf Ur Squamous Epith Cells Moderate (Few) /hpf Urine Bacteria None seen /hpf Urine Casts 0-2 Influenza A (RT-PCR) Negative (Negative) Influenza B (RT-PCR) Negative (Negative) RSV (RT-PCR) Negative (Negative) SARS-CoV-2 RNA (RT-PCR) Negative (Negative) Imaging Data Attestation: I personally reviewed and interpreted this imaging study as follows: My impression: On my independent interpretation, there appears to be a possible RLL pneumonia Radiologist's impression: US Venous Right lower extremity STat Rad: No evidence of DVT in the right lower extremity. The right calf is edematous. XR CXR 1 vew stat Rad: No evidence of acute or active process in the chest. Discharge Plan Discharge Clinical Impression: Postoperative pain of right knee, Postoperative fever, Hyponatremia, Leukocytosis, Normocytic anemia, ESR raised, CRP elevated Patient Disposition: Home Condition: Stable Instructions: Antibiotic Form, Hyponatremia (ED), Fever in Adults (ED), Leukocytosis (ED), Anemia (ED) Additional Instructions: Dr Bejarano recommends continuing to take your pain medication. Each of these contains 325mg acetaminophen. You can supplement with additional acetaminophen but be cautious not to exceed 4000mg/day of acetaminophen/Tylenol. Use the incentive spirometer you were given. Additional pain/anti fever medication has been prescribed as recommended by him as well. Call to schedule your follow up appointment and/or see if the appointment should be moved up earlier given your presentation in the ED. Patient Language: Solomon Islander Prescriptions: New ketorolac 10 mg tablet 10 mg PO Q8H PRN (Reason: pain) 5 Days Qty: 14 0RF Rx Instructions: maximum total duration of 5 days from all oral, intranasal, or parenteral formulations; received first dose in ED acetaminophen 650 mg tablet extended release 650 mg PO Q6H PRN (Reason: pain) Qty: 30 0RF No Action Move Free Ultra Faster Comfort 216 mg tablet 216 mg PO DAILY vitamin B complex Capsule 1 cap PO DAILY multivitamin Tablet 1 tablet PO DAILY omega-3 fatty acids 1,000 mg capsule 1,000 mg PO DAILY ascorbic acid (vitamin C) 1,000 mg tablet 1 g PO DAILY Patient Comments: TAKES 500 MG DAILY Mounjaro 7.5 mg/0.5 mL pen injector 7.5 mg subcut WEEKLY Qty: 2 1RF Patient Comments: HOLD A week prior per Dr Bejarano chlorhexidine gluconate [Hibiclens] 4 % liquid 1 applic topical ONCE Qty: 237 0RF Rx Instructions: as a single dose aspirin 325 mg Tablet,Delayed Release (Dr/Ec) 325 mg PO Q12HR 28 Days Qty: 56 0RF oxycodone-acetaminophen 5-325 mg Tablet 1 tablet PO Q4H PRN (Reason: pain) Qty: 30 0RF losartan 50 mg tablet See Rx Instructions .ROUTE .COMPLEX Qty: 90 2RF Dose Instruction: Take 1 tablet by mouth once daily Rx Instructions: Take 1 tablet by mouth once daily metformin 500 mg tablet extended release 24 hr 1,000 mg PO DAILY 90 Days Qty: 180 2RF celecoxib [Celebrex] 200 mg capsule 200 mg PO BID Qty: 60 0RF Patient Comments: Pending appt w hydrochlorothiazide 25 mg tablet See Rx Instructions .ROUTE .COMPLEX Qty: 90 2RF Dose Instruction: Take 1 tablet by mouth once daily Rx Instructions: Take 1 tablet by mouth once daily Follow-up/Referrals: Roc Bejarano MD [Physician, Orthopedics] Yazmin Drake MD [Primary Care Provider, Family Practice] Time of Disposition: 02:16
--- OUTSIDE RECORDS SUMMARY | 2024-11-30 22:56 | XMS_ITS | Clinical Summary ---
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
--- OUTSIDE RECORDS SUMMARY | 2024-11-30 22:56 | XMS_ITS | Encounter Summary ---
Author Organization [facility] Healthcare Address [address] [place] [address] Care Team Providers Care Roller Leveler Name Role Phone Will Verdugo MD Primary Care Provider [phone] Yazmin Drake MD Primary Care Provider [phone] Encounter Details Date Type Department Care Team (Late st Contact Info) Description 09/07/2019 Telephone [facility] [address] [place] [address] Allegra Rae RT Social History Tobacco Use Types Packs/Day Years Used Date Smoking Tobacco: Never Assessed Sex and Gender Information Value Date Recorded Sex Assigned at Not on file 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
--- OUTSIDE RECORDS SUMMARY | 2024-11-30 22:57 | XMS_ITS | Clinical Summary ---
Author Organization [facility] Address [address] [place] [address] Phone Care Team Providers Care Environmental Intern Name Role Phone Will Verdugo MD Primary Care Provider [phone] Allergies Active Allergy Reactions Criticality Noted Date Comments Penicillins Hives 05/31/2015 Sulfa Antibiotics Rash 05/31/2015 Medications Testosterone 200 MG PELLET by Intramuscular route every 10 days. Active losartan (COZAAR) 50 MG Tablet Take 50 mg by mouth daily. Active Multiple Vitamins-Almond Grinder als (MULTIVITAMIN PO) Take 1 Tab by mouth daily. Active [place]-3 Fatty Acids (FISH OIL PO) Take 1 [...] Recently Relevant to Health Maintenance Care Teams Environmental Intern Relationship Specialty Start Date End Date Will Verdugo MD [address] [place] [id number] PCP - General Family Medicine 05/31/15
--- OUTSIDE RECORDS SUMMARY | 2024-11-30 22:57 | XMS_ITS | Clinical Summary ---
Author Organization [facility] Address [facility] [place] [address] Care Team Providers Care Battery Service Technician Name Role Phone Yazmin Drake MD Primary Care Provider [phone] Allergies Active Allergy Reactions Criticality Noted Date [...] = 0.6 oz pur e alcohol) occasional [facility] Utilities Answer Date Recorded In the past 12 months has th e Truckily, gas, oil, or water company threatened to [...] any time in the past 12 m [facility], were you homeless or living in a long term (including now)? No 08/25/2023 Sex and Gender [...] R, RN Medical Devices Implanted Type [employer] Director Device Identifier Shelf Expiration Date Model / Serial / Lot Agent Hemostatic Thrombin Sterile Kit Matrix Surgiflo 8ml - [id number] Implanted:Qty: 1 on 08/25/2023 by Graciela Brandt MD at [facility] [place] [employer] / / Insurance [facility] Advance Directives * Full Code (Latest Code Status on File) Date Activated Date Inactivated Comments 08/25/2023 2:30 PM 08/26/2023 4:24 PM Care Teams Battery Service Technician Relationship Specialty Start Date End Date Yazmin Drake MD [address] [place] [address] PCP - General FAMILY PRACTICE 08/17/23
[2024-11-30] MEDS: ACETAMINOPHEN 325 MG TABLET 650 MG PO (23:24)
[2024-11-30 23:29] LABS: Hematocrit 35.2 % (42.0-52.0); Hemoglobin 11.7 g/dL (14.0-18.0); Immature Granulocyte Percent A 0.5 % (0-0.5); Lymphocytes Absolute Auto 1.79 K/mm3 (0.9-3.2); Mean Corpuscular HGB Conc 33.2 g/dl (32-36); Mean Corpuscular Hemoglobin 29.5 pg (26-34); Mean Corpuscular Volume 88.7 fl (80-100); Nucleated Red Blood Cells Absolute Auto 0.000 K/mm3 (0.0-0.012); Nucleated Red Blood Cells Perc 0.0 % (0.0-0.2); Platelet Count Result 259 k/mm3 (150-375); Red Blood Count 3.97 M/mm3 (4.6-6.20); White Blood Count 15.0 K/mm3 (4.5-10.0)
[2024-11-30] MEDS: HYDROmorphone HCL INJ (*CRX) 1 MG/ML SYR IV PUSH (23:31)
[2024-11-30 23:42] LABS: Anion Gap 8 mmol/L (4-12); Blood Urea Nitrogen 18 mg/dL (9-20); Calcium 8.3 mg/dL (8.4-10.2); Carbon Dioxide 23 mmol/L (22-30); Chloride 100 mmol/L (98-107); Estimated CRCL calculation 126 ml/min; Estimated Glomerular Filt Rate > 60; Glucose 126 mg/dL (65-110); INR 1.3; Potassium 3.7 mmol/L (3.4-5.0); Prothrombin Time 16.3 Seconds (11.1-14.7); Sodium 131 mmol/L (137-145)
[2024-11-30 23:43] LABS: Partial Thromboplastin Time 32.0 Seconds (22.3-36.8)
[2024-11-30 23:53] LABS: CRP 13.3 mg/dL (<1.0)
[2024-12-01 00:04] LABS: Influenza A QL RT-PCR Negative (Negative); Influenza B QL RT-PCR Negative (Negative); RSV RNA, RT-PCR Negative (Negative); SARS-CoV-2 RNA PCR Negative (Negative)
[2024-12-01 01:12] VITALS: BP 106/55; PULSE 77; RESP 20; TEMP 37.2; O2SAT 95
[2024-12-01 01:49] LABS: Add Urine Microscopic? YES; Appearance Urine Cloudy (Clear); Glucose Urine UA Negative (Negative); Leukocyte Esterase Ur Trace LEU/UL (Negative); Nitrate Urine Negative (Negative); Non Pathogenic Casts 0-2; Specific Grav Ur 1.021 (1.001-1.035)
[2024-12-01] MEDS: KETOROLAC 15 MG/ML VIAL (*BKC) IV PUSH (02:20)
== END 2024-12-01 02:31 | disposition home or self-care (01) ==
PROVIDERS: Emergency Provider Student in an Organized Health Care Education/Training Program; PCP Family Medicine
DX: R50.82 Postprocedural fever (principal); G89.18 Other acute postprocedural pain; D64.9 Anemia, unspecified; D72.829 Elevated white blood cell count, unspecified; E87.1 Hypo-osmolality and hyponatremia; R70.0 Elevated erythrocyte sedimentation rate; R79.82 Elevated C-reactive protein (CRP); Z20.822 Contact with and (suspected) exposure to COVID-19; I10 Essential (primary) hypertension; Z96.653 Presence of artificial knee joint, bilateral; Z87.891 Personal history of nicotine dependence; Z79.82 Long term (current) use of aspirin
CPT/HCPCS: 36415; 71045; 80048; 81001; 85025; 85610; 85652; 85730; 86140; 87637; 93971; 96374; 99284; A9270; J1171; J1885

== ENCOUNTER 2025-02-22 08:11 | Outpatient (CLI) | payer OTHER, SELFPAY ==
--- NOTE | ~2025-02-22 | XR_ITS ---
EXAMINATION: XR shoulder LT min 2V DATE: 02/22/2025 08:22 INDICATION: Left shoulder pain TECHNIQUE: AP internally and externally rotated, AP oblique externally rotated and transscapular Y views of the left shoulder were obtained. COMPARISON: None FINDINGS: Normal alignment. No fracture.Severe left glenohumeral osteoarthritis. Moderate acromioclavicular osteoarthritis. Visualized lungs are clear. Soft tissues are unremarkable. IMPRESSION: Severe left glenohumeral osteoarthritis. Reviewed, dictated and finalized at location A. TORING ANALYST
== END 2025-02-22 08:12 | disposition home or self-care (01) ==
LOC: MICIMG 08:12
PROVIDERS: PCP Student in an Organized Health Care Education/Training Program; Visit Provider Nurse Practitioner Family
DX: M19.012 Primary osteoarthritis, left shoulder (principal)
CPT/HCPCS: 73030